=== PATIENT | female | born 1960 | race Caucasian/White ===

== ENCOUNTER 2019-10-01 19:28 | Emergency (ER) | payer MEDICAID, SELFPAY ==
[2019-10-01 19:30] VITALS: BP 135/65; PULSE 60; RESP 19; TEMP 36.8; O2SAT 95; BMI 26.2
--- NOTE | 2019-10-01 19:54 | EKG12_ITS ---
Test Reason : CP Blood Pressure : / mmHG Vent. Rate : 074 BPM Atrial Rate : 074 BPM P-R Int : 154 ms QRS Dur : 082 ms QT Int : 396 ms P-R-T Axes : 067 049 038 degrees QTc Int : 439 ms Normal sinus rhythm Normal ECG Confirmed by TAD TRAMMELL, REMBERTO ([id number]), city editor ROSENDA DRAPER ([id number]) on 10/03/2019 9:16:52 AM Referred By: Confirmed By:REMBERTO MISHRA MD
--- NOTE | 2019-10-01 19:55 | ED.VIS.CHEST ---
History of Present Illness Chief Complaint: Chest Pain Informant: Patient Onset: Days - 2 Activity at onset: Unknown Timing: Continuous Quality: Heaviness Location: Substernal Current Severity: Moderate Maximum Severity: Moderate Worsened By: Breathing Relieved By: Remaining Still Associated Symptoms: Nausea - once earlier this evening, Dyspnea - chronic, a little worse than usual, Lightheadedness - a little earlier, Acid Reflux - can't qualify why she states I've had acid reflux with this lately. Negative for: Vomiting, Diaphoresis, Cough, Fever, Palpitations Narrative: Patient with a history of heart disease with angioplasty that was performed remotely, no stents placed. She takes aspirin daily, no longer on other antiplatelets or any anticoagulants. States she has been having heaviness in her chest for the last 2 days constant, has not tried any medications for that but has been compliant with her aspirin. She states tonight she was eating a inman lettuce tomato sandwich, and when she swallowed a bite, she felt a sharp pain beneath her right breast as she was swallowing it, that was severe and brief. She states after that she had some numbness in both of her hands discomfort around her right shoulder blade that is improved. This made her very concerned so she presents for evaluation making sure that this is not my heart. Recent Illness/Hospitalization: No - Past Medical History (1) CAD (coronary artery disease) Status: Chronic (2) HTN (hypertension) Status: Chronic (3) COPD (chronic obstructive pulmonary disease) Status: Chronic Past Medical History - Allergies and Home Meds Allergies/Adverse Reactions: Allergies No Known Allergies Allergy (Verified 10/01/19 19:35) Primary Care Physician: Gregoria Quinn MD [Primary Care Provider] - Surgical History: angioplasty - Coronary Lives: Alone Smoking Status: Current every day smoker Review of Systems General: Denies: Chills, Fever, Sweats Eyes: Denies: Visual changes - bilaterally, Diplopia ENT: Denies: Rhinorrhea, Sore throat Cardiovascular: Reports: Chest pain. Denies: Palpitations Respiratory: Reports: Dyspnea. Denies: Cough, Dyspnea on exertion Gastrointestinal: Reports: Nausea - gone. Denies: Abdominal pain, Vomiting, Diarrhea, Melena, Hematochezia Genitourinary: Denies: Dysuria, Hematuria, Frequency Musculoskeletal: Reports: Back pain. Denies: Neck pain, Swelling, Extremity Pain Skin: Denies: Rash, Wounds Neurological: Reports: Parasthesia. Denies: Headache, Weakness Physical Exam Vital Signs/Narrative: Vital Signs Temp Pulse Resp BP Pulse Ox 10/01/19 19:30 98.2 F 60 19 H 135/65 H 95 Inital Vital Signs reviewed: Yes General: Well nourished, Well developed, No Acute Distress Head: Normocephalic, Atraumatic Eyes: Perrl, EOMI ENT: Moist mucous membranes, No rhinorrhea, - - Posterior oropharynx clear and normal Neck: Supple, Nontender, No lymphadenopathy, No JVD Cardiovascular: Regular rate, Regular rhythm, No murmurs, - - Equal bilateral 2+/4 radial pulses Respiratory: No distress, Chest nontender, Wheezing, - - no splinting on deep inspiration. Negative for: Rales, Rhonchi Abdomen: Soft, Nontender, Nondistended, Normal bowel sounds Back: Nontender, Normal Inspection Extremities: Nontender, No edema. Negative for: Calf Tenderness Skin: Normal color, No rash, No Trauma Neurological: Alert, Oriented x3, Cranial nerves II-XII grossly intact, Normal Strength, Normal Sensation Psychological: Normal affect, Normal Mood Diagnostic/Tx/Re-eval Impressions Chest X-Ray 10/01/19 20:16 IMPRESSION: Calcified plaques of the aortic arch. No acute cardiopulmonary disease process is seen. Electronically Signed: Christiano Buchanan MD at 20:29 EDT , Service support , 10/01/19 20:16 Chest 1 View (Portable) [RAD] Stat Laboratory Results 10/01/19 10/01/19 19:44 19:44 WBC 8.2 RBC 4.43 Hgb 13.5 Hct 41.0 MCV 92.6 MCH 30.5 MCHC 32.9 RDW Std Deviation 43.3 RDW Coeff of Iván 12.7 Plt Count 351 MPV 9.3 Immature Gran % (Auto) 0.100 Neut % (Auto) 56.4 Lymph % (Auto) 30.7 Hoke % (Auto) 10.1 H Eos % (Auto) 2.0 Baso % (Auto) 0.7 Absolute Neuts (auto) 4.6 Absolute Lymphs (auto) 2.52 Nucleated RBC % 0 Sodium 142 Potassium 3.8 Chloride 107 Carbon Dioxide 30.0 Anion Gap 5 BUN 10 Creatinine 0.98 Estim Creat Clear Calc 57.15 Est GFR (MDRD) Af Amer 75 Est GFR (MDRD) Non-Af 62 BUN/Creatinine Ratio 10.3 Glucose 139 H Calcium 9.7 Troponin I < 0.015 - Rhythm Strip Rhythm Strip: Sinus Rhythm Rate: 74 Ectopy: None - EKG Initial EKG Interpretation: Sinus Rhythm, No Acute Injury Pattern - Normal EKG - Medical Decision Making Patient was given an albuterol aerosol, she states it actually seemed to make things worse and no better. It did make her wheezing improved though. After GI cocktail, she noticed maybe a little improvement transiently but no resolution of her discomfort. She was still uncomfortable. She was then given a nitroglycerin, and again maybe noticed some mild transient improvement. Her work-up is negative and she has had discomfort constant for over 2 days, with a normal EKG and negative enzymes. I reassured her I do not think this is unstable angina and she has not had any evidence of an OR here. Her work-up is otherwise unremarkable as well, her chest x-ray shows a very narrow mediastinum suggesting there is no evidence of aortic dissection, I do not think her symptoms indicate that is the case, so my pretest probability was low there in the first place. She made the symptoms worse with swallowing part of a sandwich earlier tonight, it did not get stuck and she was able to continue to drink fluids. As I discussed with her, my suspicion is that this is esophageal in etiology. Reflux, ulcers, spasm are all in the differential, she agrees she thinks it is related. She is starting to feel little little in her back now. I offered admission, but she adamantly refuses and does not want to stay in the hospital. I offered a dose of morphine prior to being discharged, and she is thankful and wants that option. She is on nothing for reflux, will prescribe her a PPI and advised that she follow-up closely with her doctor. She is comfortable with that plan. We discussed reasons to return. Additionally, the patient states that she used to see Dr. Forrester with [facility], and needs a new bottom brusher. She states she has history of angioplasty without stents. She was also given local cardiology practice information. ED Disposition - Plan for ED Patient: Disposition: Home or Assisted Living Diagnosis: Chest pain, atypical Instructions: ED Chest Pain Atypical Unkn Cause Prescriptions: Pantoprazole Sodium [Protonix] 40 mg PO DAILY #30 tab Transmission Status: Pending to [facility] Referrals: Gregoria Quinn MD [Primary Care Provider] - 3-5 Days if not improving Maxwell Roldan MD [STAFF PHYSICIAN] - (call for cardiology appt)
[2019-10-01 20:05] VITALS: PULSE 71; RESP 20
[2019-10-01] MEDS: Albuterol 2.5 MG/3 ML VIAL.NEB. INHALATION (20:05)
[2019-10-01] MEDS: Mag Hydrox/Al Hydrox/Simeth 30 ML UDC PO (20:12)
--- NOTE | 2019-10-01 20:16 | RAD_ITS ---
STUDY: X-RAY CHEST REASON FOR EXAM: Female, 59 years old. cp x2 days. down rt arm TECHNIQUE: Single AP portable view of the chest. COMPARISON: Prior study of 04/04/2017 FINDINGS: frame polisher leads are present. The lungs are clear and expanded. There is no demonstrated pleural abnormality. Normal size heart. Normal mediastinum and mendy. Normal visualized pulmonary arteries. There calcified plaques of the aortic arch. Normal visualized thoracic spine. Normal visualized ribs, clavicles, and shoulders. There is no demonstrated abnormality of the visualized soft tissue structures of the upper abdomen. RAD/Chest 1 View (Portable) IMPRESSION: Calcified plaques of the aortic arch. No acute cardiopulmonary disease process is seen. Electronically Signed: Christiano Buchanan MD at 20:29 EDT , Service support ,
--- NOTE | 2019-10-01 20:22 | CPS ---
Pt. unable to complete entire treatment due to chest pain
[2019-10-01 20:27] LABS: Absolute Lymphocyte Count 2.52 X10^3/uL (0.83-4.51); Absolute Neutrophil Count 4.6 X10^3/uL (2.0-7.7); Basophil# 0.06 X10^3/uL; Basophil% 0.7 % (0-1); Eosinophil# 0.16 X10^3/uL; Hemoglobin 13.5 g/dL (12.0-15.0); Lymphocyte # 2.52 X10^3/ul (4.0); Lymphocyte % 30.7 % (19-41); Mean Corp Hgb Conc 32.9 g/dL (32-36); Mean Corpuscular Hgb 30.5 pg (27.0-32.0); Mean Corpuscular Volume 92.6 fL (81-99); Mean Platelet Vol. 9.3 fl (6.2-12.0); Monocyte# 0.83 X10^3/uL; Monocyte% 10.1 % (0-10); NRBC Flagged by Analyzer 0 % (0-5); Neutrophil # 4.62 X10^3/uL (2.7-7.7); Neutrophil % 56.4 % (47-70); Platelet Count 351 K/mm3 (150-450); RBC Distribution Width CV 12.7 % (11.6-14.6); RBC Distribution Width SD 43.3 fl (35.1-43.9); Red Blood Count 4.43 M/mm3 (4.2-5.4); White Blood Count 8.2 K/mm3 (4.4-11.0)
[2019-10-01 20:38] LABS: Anion Gap 5 (5-15); BUN 10 mg/dL (7-18); BUN/Creat Ratio 10.3 RATIO (10-20); Calcium,Total 9.7 mg/dL (8.5-10.1); Chloride 107 mmol/L (98-107); Creatinine, Serum 0.98 mg/dL (0.55-1.02); EST Glomerular Filtration Rate 62 mL/min (>60); Est Glom Filt Rate - Afr Amer 75 mL/min (>60); Estimated Creatinine Clearance 57.15 ml/min; Glucose 139 mg/dL (74-106); Potassium 3.8 mmol/L (3.5-5.1); Sodium Level 142 mmol/L (136-145)
[2019-10-01 21:12] VITALS: BP 121/63; PULSE 71
[2019-10-01] MEDS: Nitroglycerin SL (ED/IMG/CATH) 0.4 MG TABLET SUBLINGUAL (21:12)
[2019-10-01 21:13] VITALS: BP 121/63; PULSE 74; RESP 17; O2SAT 93
[2019-10-01] MEDS: Pantoprazole Sodium 40 MG Tablet PO (21:55)
[2019-10-01] MEDS: Morphine 4 MG/ML Syringe IV (21:55)
[2019-10-01 22:01] VITALS: BP 124/71; PULSE 71; RESP 17; O2SAT 99
--- NOTE | 2019-10-01 22:01 | ED.RN ---
pt does not want to wait to see if morphine helps. pt said daughter waiting needs to leave now
== END 2019-10-01 22:02 | disposition home or self-care (01) ==
PROVIDERS: Emergency Provider Emergency Medicine; PCP Internal Medicine
DX: R07.89 Other chest pain (principal); R20.0 Anesthesia of skin; R06.00 Dyspnea, unspecified; I10 Essential (primary) hypertension; I25.10 Atherosclerotic heart disease of native coronary artery without angina pectoris; J44.9 Chronic obstructive pulmonary disease, unspecified; F17.200 Nicotine dependence, unspecified, uncomplicated; Z79.82 Long term (current) use of aspirin
CPT/HCPCS: 71045; 80048; 84484; 85025; 93005; 94640; 96374; 99285; A4216

== ENCOUNTER → 2019-11-24 06:40 | Outpatient (CLI) | payer MEDICAID, SELFPAY ==
[2019-11-06 13:00] VITALS: BMI 26.3
--- NOTE | 2019-11-24 09:07 | NEURO ---
NCS and/or EMG Patient Report Ordering Doctor: Claudio Berger DATE OF SERVICE: 11/24/19 Jonathon Davey D.O. .sign .sign Jonathon Davey D.O. This 74-year-old female states that she had chest pain intermittently for the past few weeks. There have been more frequent episodes over the past few days. This chest pain is associated with diaphoresis and she has a history of COPD. There is not shortness of breath, but there patient states she loses her breath when she bends forward. This morning the patient developed pain across her chest with throat tightness while holding her grandchild. The patient's date of is 03/02/1954. The patient's date of is March 10, 2014. Patient has a fever of 99 ?F. Blood pressure is 160/98. This is a Medications reviewed with the patient. Risks, benefits, alternatives, side effects, potential complications and dangers of medications discussed. Patient wishes to utilize these agents despite risks. A signed medical consent/advisement form regarding narcotic medications and a signed medication agreement are located in the patient's chart. .Medications Medications reviewed with the patient. Risks, benefits, alternatives, side effects, potential complications and dangers of medications discussed. Patient wishes to utilize these agents despite risks. A signed medical consent/advisement form regarding narcotic medications and a signed medication agreement are located in the patient's chart. The right knee was cleaned in the usual manner. We used Jonathon Davey D.O. a medical approach. The knee was entered with 18-gauge needle. The knee was aspirated. An injection was performed using 40 mg of Depo-Medrol with lidocaine and Marcaine. There were no complications. Normal postop instructions were given. Jonathon Davey D.O.
--- NOTE | 2019-11-25 07:55 | PFT ---
INTRODUCTION: The patient is a 59-year-old female that presents for pulmonary function studies secondary to a diagnosis of shortness of breath. Respiratory therapy reports good patient effort. Bronchodilators were used during testing. INTERPRETATION: Forced expiration spirometry demonstrates the presence of a moderately severe large airways obstructive ventilatory defect. There was no significant response to aerosolized bronchodilators. Spirograms are of good quality and do not plateau indicating slow emptying of the lungs. Body plethysmography was performed and reveals lung volumes to be within normal limits. Diffusing capacity by single breath CO is mildly reduced to 65% of predicted. IMPRESSION: Irreversible moderately severe large airways obstructive ventilatory defect with preserved lung volumes and mild reduction in diffusing capacity.
== END ==
PROVIDERS: PCP Internal Medicine; Referring Provider Internal Medicine Cardiovascular Disease; Visit Provider Internal Medicine Cardiovascular Disease
DX: I25.10 Atherosclerotic heart disease of native coronary artery without angina pectoris (principal); E78.00 Pure hypercholesterolemia, unspecified; R07.2 Precordial pain; R06.00 Dyspnea, unspecified; Z98.61 Coronary angioplasty status
CPT/HCPCS: 94060; 94726; 94729

== ENCOUNTER → 2019-12-02 06:48 | Outpatient (CLI) | payer MEDICAID, SELFPAY ==
[2019-11-06 13:00] VITALS: BMI 26.3
--- NOTE | 2019-12-02 06:48 | ECHOD_ITS ---
Reason For Study: CHEST PAIN Procedure This was a 2D Doppler, Color Flow transthoracic echocardiogram. The study was technically difficult. Exam performed in department. Left Ventricle Normal LV size. Left ventricular systolic function is normal. The estimated ejection fraction is 65 %. No evidence for diastolic dysfunction. No regional wall motion abnormalities noted. Right Ventricle Normal RV size. Normal systolic function. Atria Normal left atrium. Normal right atrium. No doppler evidence for ASD. Mitral Valve There is no mitral annular calcification. Normal mitral valve. Mild (1+) mitral valve insufficiency. Tricuspid Valve Normal tricuspid valve. Mild tricuspid valve insufficiency. Right ventricular systolic pressure estimated to be 27 mmHg. Aortic Valve The aortic valve is not well visualized. Pulmonic Valve The pulmonic valve is not well visualized. Great Vessels Normal sized aortic root. Pericardium/Pleural No pericardial effusion. MMode/2D Measurements & Calculations LVIDd: 4.4 cm IVSd: 0.92 cm Ao root diam: 2.8 cm LVIDs: 3.1 cm LVPWd: 1.00 cm RVDd: 2.8 cm FS: 30.4 % LAV(MOD-bp): 42.4 ml LA A4 area: 15.7 cm2 LA dimension(2D): 4.0 cm LAV(MOD-bp) Indexed: 23.3 ml/m2 LAV(MOD-sp2): 41.6 ml LAV(MOD-sp4): 41.7 ml Time Measurements MV dec time: 0.23 sec Doppler Measurements & Calculations MV E max jaime: 93.1 cm/sec Lat Peak E' Jaime: 11.0 cm/sec Med Peak E' Jaime: 10.3 cm/sec MV A max jaime: 81.8 cm/sec E/E' lat: 8.5 E/E' med: 9.1 MV E/A: 1.1 Ao V2 max: 105.4 cm/sec LV V1 max: 88.8 cm/sec PA V2 max: 88.7 cm/sec Ao max P.4 mmHg LV V1 max P.2 mmHg TR max jaime: 242.5 cm/sec TR max P.5 mmHg Interpretation Summary The study was technically difficult. Left ventricular systolic function is normal. The estimated ejection fraction is 65 %. Mild (1+) mitral valve insufficiency. Mild tricuspid valve insufficiency. Right ventricular systolic pressure estimated to be 27 mmHg. No evidence for diastolic dysfunction. Ordering Physician: Maxwell Roldan Referring Physician: Gregoria Quinn Performed By: Estela Estes, ABHAY, RVT
--- NOTE | 2019-12-02 08:31 | STRESSREP ---
Stress Test Report Date: 12-02-2019 Procedure: Pharmacologic stress nuclear imaging study Indications: Shortness of breath/dyspnea on exertion; CAD Consent: Per the patient Procedure: The patient underwent pharmacologic (Regadenoson) evaluation with a peak heart rate of 106 beats per minute (66 %predicted maximal heart rate) and a peak blood pressure of 120/70 mmHg. The baseline ECG demonstrated sinus bradycardia. The peak pharmacologic ECG demonstrated no obvious ECG changes. There were no cardiac dysrhythmias pretest, during pharmacologic infusion, or recovery. There was no complaint of chest discomfort during pharmacologic infusion or recovery. The examination was discontinued secondary to completion of protocol. Impression: 1. Pharmacologic (Regadenoson) evaluation 2. Peak pharmacologic ECG with no obvious ECG changes. 3. There were no cardiac dysrhythmias pretest, during pharmacologic infusion, or recovery. 4. Nuclear images pending Myocardial perfusion imaging study: Technique: The patient was injected with 11.9 millicuries of technetium 99m Cardiolite and subsequently rest SPECT Cardiolite nuclear imaging was obtained in the horizontal long, vertical long, and short axis views. The patient underwent pharmacologic (Regadenoson) evaluation with a peak heart rate of 106 beats per minute (66 % percent predicted maximal heart rate) and a peak blood pressure of 120/70 mmHg. The patient was injected with 33.6 millicuries of technetium 99m Cardiolite and subsequently stress SPECT Cardiolite nuclear imaging was obtained in the horizontal long, vertical long, and short axis views. A gated Cardiolite study at peak stress was obtained. Interpretation: Rest and stress SPECT Cardiolite nuclear imaging status post realignment, normalization, and attenuation correction demonstrate relative uniform tracer uptake and myocardial perfusion appearing within normal limits. There is end systolic thickening and brightening. The gated Cardiolite study demonstrates myocardial thickening and inward wall motion. The reported LVEF is 80 %. Impression: 1. Rest and stress SPECT Cardiolite nuclear imaging demonstrate relative uniform tracer uptake and myocardial perfusion appearing within normal limits. 2. The gated Cardiolite study reports an LVEF of 80 %. This note was generated with Iterable software. It may contain incorrect words, spelling, and punctuation that were not noted in checking the note before signing.
== END ==
PROVIDERS: PCP Internal Medicine; Referring Provider Internal Medicine Cardiovascular Disease; Visit Provider Internal Medicine Cardiovascular Disease
DX: R07.9 Chest pain, unspecified (principal); I25.10 Atherosclerotic heart disease of native coronary artery without angina pectoris; E78.00 Pure hypercholesterolemia, unspecified; R07.2 Precordial pain; R06.00 Dyspnea, unspecified; Z98.61 Coronary angioplasty status
CPT/HCPCS: 78452; 93017; 93306; A9500; A4216; J2785

== ENCOUNTER 2020-10-17 11:25 | Emergency (ER) | payer MEDICAID, SELFPAY ==
[2020-08-27 13:01] VITALS: BMI 28.4
[2020-10-17 11:26] VITALS: BP 160/70; PULSE 84; RESP 18; TEMP 36.4; O2SAT 96; BMI 29.0
--- NOTE | 2020-10-17 11:36 | RAD_ITS ---
HISTORY: injury. TECHNIQUE: XR Foot Min 3 Views. Number of images including paperwork: 3. COMPARISON: None. FINDINGS: OSSEOUS STRUCTURES: No acute fracture. Degenerative cysts of the first interphalangeal joint noted. JOINT SPACES: Fusion hardware of the first metatarsal-phalangeal joint. Mild degenerative change. No dislocation. SOFT TISSUES: No radiopaque foreign body identified. RAD/Foot min 3 Views IMPRESSION: No acute fracture or dislocation identified in the right foot. Postoperative changes. at 1217 Reported and signed by: Taryn Butts MD Electronically Signed: Taryn Butts MD at 12:16 EDT Tel , Service support ,
--- NOTE | 2020-10-17 11:38 | ED.VIS.LOWEX ---
HPI History of Present Illness Chief Complaint: Lower Extremity Injury Informant: patient Narrative Narrative: 60-year-old female was working the yard today when a board with a nail through it fell striking her just above her shoe near the ankle joint. She states now she cannot move her foot. She states that she is shaking. [facility] Medical History Atherosclerotic heart disease of [place] coronary artery without angina pectoris CAD (coronary artery disease) COPD (chronic obstructive pulmonary disease) Hepatitis C Pure hypercholesterolemia Home Medications aspirin 81 mg PO DAILY@0800 04/04/17 [History Last Taken Unknown] atorvastatin 40 mg PO DAILY 04/04/17 [History Last Taken Unknown] isosorbide mononitrate 60 mg PO DAILY 04/04/17 [History Last Taken Unknown] montelukast 10 mg PO DAILY 04/04/17 [History Last Taken Unknown] albuterol sulfate 2 puff IN Q4H PRN PRN 10/01/19 [History Last Taken Unknown] pantoprazole 40 mg PO DAILY #30 tab 10/01/19 [Rx Last Taken Unknown] cephalexin 500 mg PO Q6 #20 capsule 10/17/20 [Rx Last Taken Unknown] Allergy/AdvReac Type Severity Reaction Status Date / Time No Known Allergies Allergy Verified 10/17/20 11:26 Family History Grandmother Diabetes Surgical History History of section History of foot surgery History of percutaneous transluminal coronary angioplasty S/P PTCA (percutaneous transluminal coronary angioplasty) Social History Smoking Status: Current every day smoker tobacco type: cigarettes alcohol intake: never substance use type: does not use caffeine: Yes Type: coffee Number of servings: 1 ROS ROS ED Constitutional Constitutional ED: Denies chills or weight loss Eyes Eyes: Denies change in vision or diplopia ENT ENT ED: Denies ear pain, rhinorrhea or sore throat Cardiovascular Cardiovascular: Denies chest pain, orthopnea, palpitations or racing heartbeat Respiratory/Chest Respiratory/Chest: Denies cough, dyspnea or orthopnea Gastrointestinal Gastrointestinal: Denies abdominal pain, diarrhea, nausea or vomiting Genitourinary Genitourinary ED: Denies dysuria, hematuria or urinary frequency Musculoskeletal Musculoskeletal: Reports other Details: See history of present illness ; Denies arthralgias or myalgias Integumentary Denies abscess or rash Neurologic Neurologic: Denies headache(s) or weakness Psychiatric Psychiatric: Denies anxiety, depression, suicidal ideation or suicidal thoughts Endocrine Endocrinology: Denies polydipsia, polyphagia or polyuria Allergic/Immunologic Allergic/Immunologic ED: Denies mouth swelling, tongue swelling or urticaria EXAM Physical Exam Const Vital Signs: 10/17/20 11:26 Temperature 97.5 F L Temperature Source Temporal Pulse Rate 84 Respiratory Rate 18 Blood Pressure 160/70 H Blood Pressure Mean 100 Pulse Ox 96 Oxygen Delivery Method Room Air Positive well nourished and well developed General Appearance ED: well developed HEENT Reports normocephalic, head/scalp atraumatic and moist mucous membranes Eyes PERRL and EOMs intact bilaterally Neck no lymphadenopathy, supple and no JVD Resp normal respiratory effort and clear to auscultation bilaterally Cardio regular rate, regular rhythm and no murmurs GI normal to inspection, nondistended, normoactive bowel sounds and non-tender Palpation: soft Back/Spine no CVA tenderness and normal ROM Extremity normal to inspection Extremity Narrative: Just inferior to the right ankle joint is a puncture wound. There is mild swelling. No obvious contamination seen. Patient is able to move the foot. Neurovascular intact. She states that she cannot move the foot though because of pain. General Extremety ED: Negative for edema General Extremity: Negative for edema Neuro oriented x3 and CN's II-XII intact bilaterally Sensorium / Orientation: alert Motor Exam: strength 5/5 throughout Psych mental status grossly normal Mood & Affect: Negative for depressed or tearful Skin no rashes or lesions noted Rashes: no rashes Trauma: puncture MDM MDM MDM Narrative Medical decision making narrative: Tetanus was updated with Adacel. The wound was cleansed and dressed. She also received a dose of Toradol my interpretation of the plain films of the right ankle is no acute process. No fracture seen. No significant soft tissue air or foreign bodies are noted. Patient will receive a prescription for Keflex. Local wound care. Radiography Diagnostic Testing: Radiology Impression Foot X-Ray 10/17/20 11:36 IMPRESSION: No acute fracture or dislocation identified in the right foot. Postoperative changes. at 1217 Reported and signed by: Taryn Butts MD Electronically Signed: Taryn Butts MD at 12:16 EDT Tel , Service support , Discharge Plan Triage Chief Complaint: Lower Extremity Injury ED Provider: Ab Medrano Dx/Rx/DC Orders Clinical Impression: Puncture wound of foot Instructions: ED Puncture Wound (Foot) Prescriptions: New cephalexin [cephalexin] 500 MG capsule 500 mg PO Q6 Qty: 20 RF: 0 No Action atorvastatin 40 MG tablet 40 mg PO DAILY RF: 0 isosorbide mononitrate 60 MG tablet extended release 24 hr 60 mg PO DAILY RF: 0 aspirin 81 MG tablet,chewable 81 mg PO DAILY@0800 RF: 0 montelukast 10 MG tablet 10 mg PO DAILY RF: 0 albuterol sulfate 90 mcg/actuation HFA aerosol inhaler 2 puff IN Q4H PRN PRN (Reason: Sob &/Or Wheezing) RF: 0 pantoprazole 40 MG tablet 40 mg PO DAILY Qty: 30 RF: 0 Primary Care Provider: Gregoria Quinn Referrals: Gregoria Quinn MD [Primary Care Provider] - 3-5 Days if not improving Disposition Disposition: Home, self care
[2020-10-17] MEDS: Diphth,Pertuss(Acell),Tet Vac 0.5 ML Vial IM (11:54)
[2020-10-17] MEDS: Ketorolac 30 MG/ML Syringe IM (11:54)
== END 2020-10-17 12:50 | disposition home or self-care (01) ==
PROVIDERS: Emergency Provider Emergency Medicine; PCP Internal Medicine
DX: S91.332A Puncture wound without foreign body, left foot, initial encounter (principal); W20.8XXA Other cause of strike by thrown, projected or falling object, initial encounter; Y93.9 Activity, unspecified; Y92.096 Garden or yard of other non-institutional residence as the place of occurrence of the external cause; Y99.9 Unspecified external cause status; E78.00 Pure hypercholesterolemia, unspecified; I25.10 Atherosclerotic heart disease of native coronary artery without angina pectoris; J44.9 Chronic obstructive pulmonary disease, unspecified; F17.210 Nicotine dependence, cigarettes, uncomplicated; Z79.82 Long term (current) use of aspirin; Z95.5 Presence of coronary angioplasty implant and graft
CPT/HCPCS: 73630; 90471; 90715; 96372; 99282; A4216

== ENCOUNTER → 2021-02-25 12:00 | Outpatient (CLI) | payer MEDICAID, SELFPAY ==
[2021-02-25 13:32] LABS: AST(SGOT) 19 U/L (15-37); Alanine Aminotransfer ALT/SGPT 11 U/L (13-56); Albumin, Serum 3.5 g/dL (3.2-5.0); Alkaline Phosphatase 129 U/L (45-117); Bilirubin, Direct 0.12 mg/dL (0.00-0.30); Cholesterol 168 mg/dL (200); Globulin 4.2 g/dL (2.2-4.2); High Density Lipoprotein 73 mg/dL; Protein, Total 7.7 g/dL (6.4-8.2); Triglycerides 116 mg/dL; Very Low Density Lipoprotein 23 mg/dL (5-40)
== END ==
PROVIDERS: PCP Internal Medicine; Referring Provider Nurse Practitioner Gerontology; Visit Provider Nurse Practitioner Gerontology
DX: E78.00 Pure hypercholesterolemia, unspecified (principal)
CPT/HCPCS: 36415; 80061; 80076

== ENCOUNTER → 2021-03-29 06:49 | Outpatient (CLI) | payer MEDICAID, SELFPAY ==
--- NOTE | 2021-03-29 08:52 | STRESSREP_ITS ---
Stress Test Report Date: 03-29-2021 Procedure: Exercise tolerance test/imaging study Indications: Chest pain, CAD, PTCA (no stent) Consent: Per the patient Procedure: The patient exercised on a Renny protocol for 3 minutes and 29 seconds completing Stage I and 29 seconds of Stage II achieving a peak heart rate of 134 bpm (84 % predicted maximal heart rate) with a peak blood pressure 162/84 mmHg and a peak MET capacity of 5 METs. The baseline ECG demonstrated sinus rhythm. The peak exercise ECG demonstrated somatic / motion artifact with no obvious ECG changes. There were rare PVCs during exercise. The functional capacity was considered decreased. There was no complaint of chest discomfort during exercise or recovery. The examination was discontinued secondary to dyspnea. Impression: 1. Technically inadequate (percent predicted maximal heart rate less than 85%) exercise tolerance test 2. Peak exercise ECG with somatic / motion artifact with no obvious ECG changes at the heart rate achieved. 3. There were rare PVCs during exercise. 4. Nuclear images pending Myocardial perfusion imaging study: Technique: The patient was injected with 10.8 mCi of technetium 99m Cardiolite and subsequently rest SPECT Cardiolite nuclear imaging was obtained in the horizontal long, vertical long, and short axis views. The patient exercised on a Renny protocol for 3 minutes and 29 seconds completing Stage I and 29 seconds of Stage II achieving a peak heart rate of 134 bpm (84 % predicted maximal heart rate) with a peak blood pressure 162/84 mmHg and a peak MET capacity of 5 METs. The patient was injected with 32.7 mCi of technetium 99m Cardiolite and subsequently stress SPECT Cardiolite nuclear imaging was obtained in the horizontal long, vertical long, and short axis views. A gated Cardiolite study at peak stress was obtained. Interpretation: Rest and stress SPECT Cardiolite nuclear imaging status post realignment, normalization, and attenuation correction, demonstrates the appearance of relative uniform tracer uptake and myocardial perfusion appearing within normal limits. There is end systolic thickening and brightening. The gated Cardiolite study demonstrates myocardial thickening and inward wall motion. The reported LVEF is 82 %. Impression: 1. Rest and stress SPECT Cardiolite nuclear imaging demonstrate relative uniform tracer uptake and myocardial perfusion appearing within normal limits. 2. The gated Cardiolite study reports an LVEF of 82 %. This note was generated with [employer] software. It may contain incorrect words, spelling, and punctuation that were not noted in checking the note before signing.
== END ==
PROVIDERS: PCP Internal Medicine; Referring Provider Nurse Practitioner Gerontology; Visit Provider Nurse Practitioner Gerontology
DX: R07.89 Other chest pain (principal); I25.10 Atherosclerotic heart disease of native coronary artery without angina pectoris
CPT/HCPCS: 78452; 93017; A9500; A4216

== ENCOUNTER → 2022-06-09 | Outpatient (CLI) | payer MEDICAID, SELFPAY ==
--- NOTE | 2022-06-09 16:37 | CT_ITS ---
STUDY: LOW DOSE CT LUNG CANCER SCREENING REASON FOR EXAM: Female, 62 years old. Smoker. 40 pack year history. RADIATION DOSAGE (If Supplied By Facility): CTDIvol = ( 3.02 ) mGy, DLP = ( 115.88 ) mGycm TECHNIQUE: No contrast was administered. Low dose technique was utilized (average mAS-38 and kVp 120). 1.25 mm axial source images with a slice interval of 1.25-mm were reconstructed in lung windows. 2.5 mm axial source images with a slice interval of 2.5-mm were reconstructed in lung windows. 5.0 mm axial source images with a slice interval of 5.0-mm were reconstructed in soft tissue windows. COMPARISON: May 04, 2021. NODULES: Total lung nodules (excluding granulomas): 0 Emphysema: Stable emphysematous changes of lungs without acute infiltrate or mass. Endobronchial lesion: None Aorta: Stable atherosclerotic changes of the aorta without aneurysm. CORONARY ARTERIES: Coronary artery calcification are seen Heart: Normal Pulmonary artery: Normal Mediastinal nodes: Stable nonspecific subcentimeter mediastinal lymph nodes. Other chest and abdominal findings: On CT/Low Dose CT Lung Screening IMPRESSION: Lung-RADS category 1 - Continue annual screening with LDCT in 12 months. IMPORTANT NOTES FOR USE: ACR Lung-RADS Version 1.1 Assessment Categories Release Date: 2018 Category: Coded 0-4 bases on nodule(s) with highest degree of suspicion. Negative screen is defined as categories 1 and 2; a positive screen is defined as categories 3 and 4. Category 3 and 4A nodules that are unchanged on interval CT should be coded as category 2, and individuals returned to screening in 12 months. Category 4X: Category 3 or 4 nodules with additional imaging findings that increase the suspicion of lung cancer, such as spiculation, GGN that doubles in size in 1 year, enlarged lymph notes, etc. Category Modifiers: S (significant finding unrelated to lung cancer) Electronically Signed: Jake Patterson DO at 21:46 EST Reading Location ID and State: [address] [place] [address] Tel [phone], Service support ,
== END | disposition home or self-care (01) ==
LOC: CT 16:33
PROVIDERS: PCP Internal Medicine; Visit Provider Nurse Practitioner Acute Care
DX: F17.210 Nicotine dependence, cigarettes, uncomplicated (principal)
CPT/HCPCS: 71271

== ENCOUNTER → 2022-06-23 | Outpatient (CLI) | payer MEDICAID, SELFPAY ==
--- NOTE | 2022-06-24 06:47 | PFT ---
INTRODUCTION: The patient is a 62-year-old female that presents for pulmonary function studies secondary to a diagnosis of COPD. Respiratory therapy reported good patient effort. Bronchodilators were used during testing. INTERPRETATION: Forced expiration spirometry demonstrates the presence of a moderate large airways obstructive ventilatory defect. There was no significant response to aerosolized bronchodilators. Spirograms are of good quality but do not plateau indicating slow emptying of the lungs. Body plethysmography was performed and reveals lung volumes to be within normal limits. Diffusing capacity by single breath CO is reduced at 65% of predicted. IMPRESSION: Irreversible moderate large airways obstructive ventilatory defect with mild reduction in diffusing capacity.
== END | disposition home or self-care (01) ==
LOC: PSN 09:17
PROVIDERS: PCP Internal Medicine; Visit Provider Internal Medicine Critical Care Medicine
DX: J44.9 Chronic obstructive pulmonary disease, unspecified (principal)
CPT/HCPCS: 94060; 94726; 94729

== ENCOUNTER → 2022-07-04 | Outpatient (CLI) | payer MEDICAID, SELFPAY ==
[2022-07-04 13:41] VITALS: PULSE 73; PULSE 78; PULSE 90; PULSE 92; PULSE 97; PULSE 99; O2SAT 92; O2SAT 93; O2SAT 94
--- NOTE | 2022-07-05 10:27 | PCM.PSN.6M ---
PSN 6 Minute Walk Test 6 Minute Walk Test 6 Minute Walk Test: 6 Minute Walk Test PSN:6-Minute Walk Test Start: 07/04/22 13:41 Freq: Status: Active Protocol: [id number].6MINW Document 07/04/22 13:41 [facility] (Rec: 07/04/22 13:43 SFENTON Desktop) 6 Minute Walk Test Date Performed 07/04/22 Time Performed 13:00 Height 5 ft 7 in Weight: 188 lb Weight in Pounds 188.[address]: Luis Lui Assistive device used: None Pre-test Oxygen Delivery Method Room Air Pulse Ox (%) 94 Pulse Rate (60-100 beats/min) 73 Dyspnea Clinton Scale (0-10) 0 Exertion Clinton Scale (6-20) 6 1st minute Oxygen Delivery Method Room Air Pulse Ox (%) 92 Pulse Rate (60-100 beats/min) 92 2nd minute Oxygen Delivery Method Room Air Pulse Ox (%) 92 Pulse Rate (60-100 beats/min) 90 3rd minute Oxygen Delivery Method Room Air Pulse Ox (%) 93 Pulse Rate (60-100 beats/min) 92 4th minute Oxygen Delivery Method Room Air Pulse Ox (%) 92 Pulse Rate (60-100 beats/min) 99 5th minute Oxygen Delivery Method Room Air Pulse Ox (%) 92 Pulse Rate (60-100 beats/min) 97 6th minute Oxygen Delivery Method Room Air Pulse Ox (%) 92 Pulse Rate (60-100 beats/min) 99 Dyspnea Clinton Scale (0-10) 3 Exertion Clinton Scale (6-20) 14 Post-test Oxygen Delivery Method Room Air Pulse Ox (%) 94 Pulse Rate (60-100 beats/min) 78 Full Laps Walked 15 Partial Lap, Number of Tiles Walked 4 Total Distance Walked (ft) 889 Interpretation Interpretation: The patient ambulated 889 feet over the course of 6 minutes beginning on room air without assistive devices. Pretesting oxygen saturation was noted to be 94% on room air. With ambulation, the garrick oxygen saturation was 92%. There was no significant exertional oxygen desaturation. Recommendations Recommendations: There is no indication for the use of supplemental oxygen at this time.
== END | disposition home or self-care (01) ==
PROVIDERS: PCP Internal Medicine; Referring Provider Internal Medicine Critical Care Medicine; Visit Provider Internal Medicine Critical Care Medicine
DX: J44.9 Chronic obstructive pulmonary disease, unspecified (principal)
CPT/HCPCS: 94618

== ENCOUNTER 2023-04-23 09:08 | Emergency (ER) | payer MEDICAID, SELFPAY ==
[2023-04-23 09:09] VITALS: BP 141/98; PULSE 71; RESP 18; TEMP 36.4; O2SAT 95; BMI 28.5
--- NOTE | 2023-04-23 09:33 | EX.ED.GENINJ ---
HPI History of Present Illness Chief Complaint: Laceration Informant: patient Narrative Narrative: 63-year-old female was using a brand-new hunting knife to cut some tags off of clothing, and she accidentally cut into her left index finger I think it is down to the bone. It is occurred last night, she been having trouble controlling the bleeding. She is on aspirin daily but no anticoagulant medications. [id number]. [facility] Medical History (Updated 04/23/23 @ 10:[address] Tahir Singleton MD) Atherosclerotic heart disease of [place] coronary artery without angina pectoris CAD (coronary artery disease) COPD (chronic obstructive pulmonary disease) Emphysema lung Hepatitis C Pure hypercholesterolemia Home Medications aspirin 81 mg chewable tablet 81 mg PO DAILY@0800 04/04/17 [History Last Taken Unknown] atorvastatin 40 mg tablet 40 mg PO DAILY 04/04/17 [History Last Taken Unknown] pantoprazole 40 mg tablet,delayed release 40 mg PO DAILY PRN 02/25/21 [History Last Taken Unknown] isosorbide mononitrate 60 mg tablet,extended release 24 hr 60 mg PO DAILY 03/10/22 [History Last Taken Unknown] montelukast 10 mg tablet 10 mg PO DAILY #90 tabs 06/01/22 [Rx Last Taken Unknown] albuterol sulfate 90 mcg/actuation aerosol inhaler 2 puff inhalation Q4H PRN PRN Sob &/Or Wheezing #8.5 grams 06/14/22 [Rx Last Taken Unknown] umeclidinium 62.5 mcg/actuation blister powder for inhalation (Incruse Ellipta) 1 inh inhalation DAILY #30 ea 06/14/22 [Rx Last Taken Unknown] fluticasone propionate 50 mcg/actuation nasal spray,suspension 2 spray intranasal DAILY #16 grams 10/03/22 [Rx Last Taken Unknown] Allergy/AdvReac Type Severity Reaction Status Date / Time No Known Allergies Allergy Verified 04/23/23 09:09 Family History Grandmother Diabetes Surgical History History of section History of foot surgery History of percutaneous transluminal coronary angioplasty S/P PTCA (percutaneous transluminal coronary angioplasty) Social History (Reviewed 06/06/23 @ 08:53 by Jessie Mathews 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, 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) Smoking Status: Current every day smoker tobacco type: cigarettes alcohol intake: never substance use type: does not use caffeine: Yes Type: coffee Number of servings: 1 ROS ROS ED Constitutional Constitutional ED: Denies chills or fever(s) Musculoskeletal Musculoskeletal: Reports extremity pain; Denies neck pain Integumentary Reports wounds; Denies Abrasions or rash Neurologic Neurologic: Denies paresthesias or weakness EXAM Physical Exam Const Vital Signs: 04/23/23 09:09 Temperature 97.5 F L Temperature Source Temporal Pulse Rate 71 Respiratory Rate 18 Blood Pressure 141/98 H Blood Pressure Mean 112 Pulse Ox 95 Oxygen Delivery Method Room Air Positive well nourished and well developed General Appearance ED: well developed and NAD Neck full ROM and supple Back/Spine normal ROM and normal to inspection Extremity Extremity Narrative: Laceration to the left index finger. Able to range all joints no bony tenderness or deformity. No other injuries. FDS, FDP intact. Able to extend with no difficulty. Laceration is volar aspect middle phalanx closer to the PIPJ. Able to range the joint fully. No bony tenderness dorsally. Neuro oriented x3, no focal motor deficits and no sensory deficits noted Sensorium / Orientation: alert Psych mental status grossly normal and thought process normal Skin Skin Narrative: Laceration left index finger 1.5 cm, J-shaped. It is full-thickness, there is brisk venous oozing that is temporarily stopped when I apply pressure distal to the laceration consistent with venous bleeding. There is subcutaneous tissue visible but no tendons or bone. Clean-appearing. Rashes: no rashes PROC Procedures Lacerations L index finger: Length: 1.5 cm Depth: Sub Q Shape: J-shaped Prep: Sterile Conditions and Chlorhexadine Laceration repair: Irrigated, Lidocaine with epi (1%) and Local (2cc) Irrigated (ml): 100 (under pressure) Number of Sutures/Kinder: 5 Suture Information: Ethilon, Simple and 5-0 Comment: Good skin edge apposition even with ranging at the PIPJ, and hemostasis MDM MDM MDM Narrative Medical decision making narrative: Laceration was repaired after locally anesthetizing patient tolerated well no complications. Do not think she needs a tetanus update from this it was a clean brand-new knife. Given instructions for care and suture removal, and signs and symptoms of infection and reasons to return. She was asking for a splint because it was hurting so bad to move it, she was advised to just use this for couple days and not the entire 2 weeks. Discharge Plan Triage Chief Complaint: Laceration ED Provider: Tahir Singleton Dx/Rx/DC Orders Clinical Impression: Laceration of left index finger w/o foreign body w/o damage to nail Instructions: ED Laceration, Hand: All Closures Prescriptions: No Action pantoprazole 40 mg tablet,delayed release (DR/EC) 40 mg PO DAILY PRN isosorbide mononitrate 60 mg tablet extended release 24 hr 60 mg PO DAILY Incruse Ellipta 62.5 mcg/actuation blister with device 1 inh inhalation DAILY Qty: 30 6RF albuterol sulfate 90 mcg/actuation HFA aerosol inhaler 2 puff inhalation Q4H PRN PRN (Reason: Sob &/Or Wheezing) Qty: 8.5 3RF fluticasone propionate 50 mcg/actuation spray,suspension 2 spray intranasal DAILY Qty: 16 3RF atorvastatin 40 MG tablet 40 mg PO DAILY aspirin 81 MG tablet,chewable 81 mg PO DAILY@0800 montelukast 10 mg tablet 10 mg PO DAILY Qty: 90 3RF Primary Care Provider: Gregoria Quinn Referrals: Gregoria Quinn MD [Primary Care Provider] - 10-14 Days suture removal (or ER/urgent care, or another physician in same office as Dr. Quinn if she is no longer available) Disposition Disposition: Home, Self Care
[2023-04-23] MEDS: Lidocaine 1% /Epi 1:100 (20ml) 20 ML Vial INFILT (09:51)
== END 2023-04-23 10:56 | disposition home or self-care (01) ==
PROVIDERS: Emergency Provider Emergency Medicine; PCP Internal Medicine; Visit Provider Emergency Medicine
DX: S61.211A Laceration without foreign body of left index finger without damage to nail, initial encounter (principal); J44.9 Chronic obstructive pulmonary disease, unspecified; I25.10 Atherosclerotic heart disease of native coronary artery without angina pectoris; E78.00 Pure hypercholesterolemia, unspecified; Z23 Encounter for immunization; F17.210 Nicotine dependence, cigarettes, uncomplicated; W26.0XXA Contact with knife, initial encounter
CPT/HCPCS: 12001; 99283

== ENCOUNTER → 2023-06-22 | Outpatient (CLI) | payer MEDICAID, SELFPAY ==
--- NOTE | 2023-06-22 14:34 | CT_ITS ---
STUDY: LOW DOSE CT LUNG CANCER SCREENING REASON FOR EXAM: Female, 63 years old. Smoker. Patient smoked 2 packs per day for 45 years. RADIATION DOSAGE (If Supplied By Facility): CTDIvol = ( 2.39 ) mGy, DLP = ( 101.18 ) mGycm TECHNIQUE: No contrast was administered. Low dose technique was utilized (average mAS-38 and kVp 120). 1.25 mm axial source images with a slice interval of 1.25-mm were reconstructed in lung windows. 2.5 mm axial source images with a slice interval of 2.5-mm were reconstructed in lung windows. 5.0 mm axial source images with a slice interval of 5.0-mm were reconstructed in soft tissue windows. COMPARISON: Comparison is made with prior study dated June 09, 2022. NODULES: No suspicious nodules are seen. Stable scarring in the anterior aspect of the left lower lobe abutting the left major fissure as well as the right upper lobe. Emphysema: Hyperinflation. Emphysematous changes with centrilobular emphysema more prominent in the upper lobes. Endobronchial lesion: None Aorta: Atherosclerotic plaque formation. CORONARY ARTERIES: Coronary artery calcification is seen. Heart: Unremarkable Pulmonary artery: Unremarkable Mediastinal nodes: No significant adenopathy seen. Other chest and abdominal findings: Unremarkable CT/Low Dose CT Lung Screening IMPRESSION: Lung-RADS category 2 - Continue annual screening with LDCT in 12 months. IMPORTANT NOTES FOR USE: ACR Lung-RADS Version 1.1 Assessment Categories Release Date: 2018 Category: Coded 0-4 bases on nodule(s) with highest degree of suspicion. Negative screen is defined as categories 1 and 2; a positive screen is defined as categories 3 and 4. Category 3 and 4A nodules that are unchanged on interval CT should be coded as category 2, and individuals returned to screening in 12 months. Category 4X: Category 3 or 4 nodules with additional imaging findings that increase the suspicion of lung cancer, such as spiculation, GGN that doubles in size in 1 year, enlarged lymph notes, etc. Category Modifiers: S (significant finding unrelated to lung cancer) Electronically Signed: Malachi Vaughan MD at 15:21 EST ,
--- OUTSIDE RECORDS SUMMARY | 2023-06-22 17:48 | XMS RPT_ITS | CCD ---
Demographics Address [address] [place] [address] Home Phone Mobile Phone Home Phone Mobile Phone Preferred Language en Marital Status Single Sabianist Affiliation Unknown Race White Ethnic Group Not or Lati no Author Name Unknown Address [address] [place] [address] Organization [facility] Care Team Providers Care 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 Name Role Phone RENATO PEMBERTON Unavailable Unavailable PHYSICIAN, NONE Unavailable Unavailable [place] TRAMMELL, Gregoria Primary Care Provider Maxwell Roldan F Unavailable Gregoria Bagley MD Primary Care Provider Mawxell Roldan F Unavailable Maxwell Roldan F Unavailable Gregoria Bagley MD Primary Care Provider Maxwell Roldan F Unavailable Maxwell Roldan F Unavailable Maxwell Roldan MD Unavailable GANTA, GREGORIA Primary Care Unavailable GANTA, GREGORIA Attending Unavailable GANTA, GREGORIA Referring Unavailable GANTA, GREGORIA Primary Care Unavailable GANTA, GREGORIA Attending Unavailable GANTA, GREGORIA Referring Unavailable GANTA, GREGORIA Referring Unavailable GANTA, GREGORIA Primary Care Unavailable GANTA, GREGORIA Primary Care Unavailable GANTA, GREGORIA Primary Care Unavailable RABIA LUKE Attending Unavailable GANTA, GREGORIA Referring Unavailable GANTA, GREGORIA Primary Care Unavailable GANTA, GREGORIA Referring Unavailable Allergies Allergy Classification Reported Allergen(s) Allergy Type Date of Onset Reaction(s) Facility (14 sources) Dust; Translations: [DUST] Allergy to substance 03-27-2017 Unknown [facility] Work Phone: (14 sources) Feather; Translations: [FEATHERS] Drug Allergy 03-27-2017 Unknown [facility] Work Phone: (14 sources) Grass pollen; Translations: [GRASS POLLEN] Drug Allergy 03-27-2017 Unknown [facility] Work Phone: (14 sources) Cotton; Translations: [COTTON] Allergy to substance 03-27-2017 Unknown [facility] Work Phone: Medications Completed/Discontinued Medications Medication Drug Class(es) Dates Sig (Normalized) Sig (Original) [id number] actuat albuterol 0.09 mg/actuat metered dose inhaler (12 sources) beta2-Adrenergic Agonist Start: 01-29-2023 End: 06-13-2023 take 2 puff(s) by inhalation every four hours as needed albuterol HFA (PROVENTIL HFA, VENTOLIN HFA) 90 mcg/actuation inhaler Inhale 2 Puffs as instructed every 4 hours as needed. 18 g 3 06/14/2023 Active Problems Active Problems Problem Classification Problem Date Documented Da te Episodic/Chronic Allergic reactions (2 sources) Other allergy status, other than to drugs and biological substances; Translations: [Environmental allergy] Onset: 06-09-2022 06-13-2023 Episodic Chronic obstructive pulmonary disease and bronchiectasis (20 sources) Pulmonary emphysema; Translations: [Other emphysema] Onset: 05-25-2020 Chronic Coronary atherosclerosis and other heart disease (13 sources) Coronary arteriosclerosis; Translations: [Atherosclerotic heart disease of [place] coronary artery without angina pectoris] Onset: 04-16-2013 04-25-2021 Chronic Disorders of lipid metabolism (18 sources) Hyperlipidemia; Translations: [Hyperlipidemia, unspecified] Onset: 04-16-2013 Chronic Hepatitis (14 sources) Chronic hepatitis C; Translations: [Chronic viral hepatitis C] Onset: 05-18-2020 Chronic Osteoarthritis (3 sources) Osteoarthritis of right hip joint; Translations: [Unilateral primary osteoarthritis, right hip] Onset: 06-09-2022 Chronic Other aftercare (2 sources) Patient encounter status; Translations: [Other on site manager (current) drug therapy] Episodic Other nervous system disorders (2 sources) Other chronic pain; Translations: [Chronic pain of right hip] Onset: 06-09-2022 Chronic Other non-traumatic joint disorders (1 source) Pain in right hip joint; Translations: [Pain in right hip] Episodic Other non-traumatic joint disorders (1 source) Shoulder pain; Translations: [Pain in left shoulder] Episodic Residual codes; unclassified (1 source) Left before being seen; Translations: [Procedure and treatment not carried out due to patient leaving prior to being seen by health care provider] Episodic Substance-related disorders (15 sources) Tobacco dependence, continuous; Translations: [Nicotine dependence, unspecified, with unspecified nicotine-induced disorders] Onset: 04-16-2013 Chronic Past or Other Problems Problem Classification Problem Date Documented Da te Episodic/Chronic Abdominal pain (1 source) Epigastric pain; Translations: [Epigastric pain] Onset: 06-09-2022 Episodic Diabetes mellitus without complication (4 sources) Prediabetes; Translations: [Prediabetes] Onset: 06-09-2022 Episodic Nonspecific chest pain (13 sources) Chest pain; Translations: [Chest pain, unspecified] Onset: 04-16-2013 04-16-2013 Episodic Other aftercare (1 source) Other on site manager (current) drug therapy; Translations: [Medication management] Onset: 05-29-2022 Episodic Other connective tissue disease (1 source) Impingement syndrome of left shoulder; Translations: [Impingement syndrome of left shoulder] Onset: 06-09-2022 Episodic Other connective tissue disease (1 source) Impingement syndrome of right shoulder; Translations: [Impingement syndrome of right shoulder] Onset: 06-09-2022 Episodic Other non-traumatic joint disorders (2 sources) Pain in right hip; Translations: [Right hip pain] Onset: 06-09-2022 Episodic Other non-traumatic joint disorders (2 sources) Pain in left shoulder; Translations: [Left shoulder pain, unspecified chronicity] Onset: 06-09-2022 Episodic Other non-traumatic joint disorders (1 source) Pain in right shoulder; Translations: [Chronic pain of both shoulders] Onset: 06-09-2022 Episodic Results Test Name Value Interpretation Reference Range Facil ity Vital Signs Date Time Vital Sign Value Performing Clinician Yessy johansen 08-21-2022 10:10-0400 Body height 170.2 cm Rabia Luke PA-C Work Phone: [facility] 08-21-2022 10:10-0400 Body weight 84.37 kg Rabia Luke PA-C Work Phone: [facility] 06-01-2022 10:13-0500 Body temperature 98.1 [degF] Gregoria Bagley MD Work Phone: [facility] 06-01-2022 10:13-0500 Body weight 83.73 kg Gregoria Bagley MD Work Phone: [facility] 06-01-2022 10:13-0500 Diastolic blood pressure 78 mm[Hg] Gregoria Bagley MD Work Phone: [facility] 06-01-2022 10:13-0500 Heart rate 76 /min Gregoria Bagley MD Work Phone: [facility] 06-01-2022 10:13-0500 Respiratory rate 22 /min Gregoria Bagley MD Work Phone: [facility] 06-01-2022 10:13-0500 SaO2% (BldA) [Mass fraction] 96 % Gregoria Bagley MD Work Phone: [facility] 06-01-2022 10:13-0500 Systolic blood pressure 134 mm[Hg] Gregoria Bagley MD Work Phone: [facility] 11-28-2021 11:39-0400 Body height 165.1 cm Gregoria Bagley MD Work Phone: [facility] 11-28-2021 11:39-0400 Body temperature 98.01 [degF] Gregoria Bagley MD Work Phone: [facility] 11-28-2021 11:39-0400 Body weight 79.83 kg Gregoria Bagley MD Work Phone: [facility] 11-28-2021 11:39-0400 Diastolic blood pressure 62 mm[Hg] Gregoria Bagley MD Work Phone: [facility] 11-28-2021 11:39-0400 Heart rate 72 /min Gregoria Bagley MD Work Phone: [facility] 11-28-2021 11:39-0400 Respiratory rate 12 /min Gregoria Bagley MD Work Phone: [facility] 11-28-2021 11:39-0400 SaO2% (BldA) [Mass fraction] 96 % Gregoria Bagley MD Work Phone: [facility] 11-28-2021 11:39-0400 Systolic blood pressure 112 mm[Hg] Gregoria Bagley MD Work Phone: [facility] Encounters Encounter Date Encounter Type Care Provider Facility Start: 06-13-2023 Refill Gregoria Fermin Work Phone: [facility] Procedures Date Procedure Procedure Detail Performing Clinician Start: 05-29-2022 Lipid 1996 panel - S jewel or Plasma Mari Abdul APRN.CNP Work Phone: Start: 11-28-2021 Hemoglobin A1c/Hemoglobin.total in Blood Gregoria Bagley MD Work Phone: Start: 11-28-2021 Adult depression scr eening assessment Gregoria Bagley MD Work Phone: Start: 02-06-2019 Mammography Gregoria begum MD Work Phone: Start: 02-28-2018 Colonoscopy Gregoria begum MD Work Phone: Plan of Treatment Date Care Activity Detail Author Start: 10-17-2030 Urine microalbumin profile DTa P,Tdap,Td Vaccine (3 - Td or Tdap) [facility] Start: 05-29-2027 Lipid 1996 panel - S jewel or Plasma Lipid Screening [facility] Start: 05-29-2027 Lipid panel Lipid Screening [facility] Start: 05-29-2027 LIPID SCREEN LIPID SCREEN [facility] Start: 06-15-2026 LIPID SCREEN LIPID SCREEN [facility] Start: 06-09-2025 DIABETES SCREEN DIABETES SCREEN [facility] Start: 06-09-2025 Diabetes Screening Diabetes Screenin g [facility] Start: 11-28-2024 DIABETES SCREEN DIABETES SCREEN [facility] Start: 06-28-2024 COLOGUARD (FIT-DNA) COLOGUARD (FIT-D NA) [facility] Start: 06-28-2024 COLORECTAL CANCER SCREENING COLORECTAL CANCER SCREENING [facility] Start: 06-28-2024 Screening for malign ant neoplasm of colon [facility] Start: 06-09-2023 ANNUAL PCP TEAM DESCRIPTIVE CATALOG LIBRARIAN NOAH DISEASE VISIT ANNUAL PCP TEAM CHRONIC DISEASE VISIT [facility] Start: 05-29-2023 Hepatitis B surface antibody level LDL CHOLESTEROL [facility] Start: 04-30-2023 Depression Assessment Depression Ass essment [facility] Start: 12-29-2022 Influenza vaccination [facility] Start: 11-28-2022 Adult depression scr eening assessment DEPRESSION SCREENING [facility] Start: 11-28-2022 ANNUAL PCP TEAM DESCRIPTIVE CATALOG LIBRARIAN NOAH DISEASE VISIT ANNUAL PCP TEAM CHRONIC DISEASE VISIT [facility] Start: 10-27-2022 Influenza vaccination INFLUENZA (#1) [facility] Immunizations Immunization Date Immunization Notes Care Provider Ck crystal 01-31-2021 hepatitis B vaccine, adult dosage Gregoria Bagley MD Work Phone: [facility] Work Phone: 10-17-2020 tetanus toxoid, redu papo diphtheria toxoid, and acellular pertussis vaccine, adsorbed Gregoria Bagley MD Work Phone: [facility] 09-16-2020 hepatitis B vaccine, adult dosage Gregoria Bagley MD Work Phone: [facility] Work Phone: 07-29-2020 hepatitis B vaccine, adult dosage Gregoria Bagley MD Work Phone: [facility] Work Phone: 02-28-2018 influenza virus vacc ine, unspecified formulation Mari Abdul APRN.CNP Work Phone: [facility] 02-09-2016 pneumococcal polysaccharide vaccine, 23 valent Gregoria Bagley MD Work Phone: [facility] Work Phone: 08-15-2013 tetanus toxoid, redu papo diphtheria toxoid, and acellular pertussis vaccine, adsorbed Gregoria Bagley MD Work Phone: [facility] 04-16-2013 influenza virus vacc ine, unspecified formulation Gregoria Bagley MD Work Phone: [facility] Payers Date Payer Category Payer Medicaid [id number] 2018 Medicaid [employer] [id number] 2018-Present [phone] [address] [place] [address] Medicaid [id number] 2018 Medicaid [id number] 2017 Medicaid [id number] Social History Date Type Detail Facility Start: 09-01-1984 End: 06-01-2022 Tobacco smoking status NHIS Smokes tobacco daily [facility] Work Phone: Start: 09-01-1984 History of tobacco use Cigarette Smo ker [facility] Work Phone: Start: 11-28-2021 End: 05-03-2023 Alcohol intake Current non-drinker of alcohol (finding) [facility] Start: 05-25-2020 End: 06-01-2022 Tobacco Comment Father smoked in childhood home. Currently, no smoking in her home. [facility] Start: 1960 Sex Assigned At Not on file [facility] Start: 11-18-2021 End: 11-28-2021 Exposure to SARS-CoV-2 (event) Not sure [facility] Work Phone: Start: 05-25-2020 End: 05-12-2022 Cigarettes smoked current (pack per day) - Reported 0.5 [facility] Start: 05-25-2020 End: 06-01-2022 Tobacco use and exposure Smokeless tobacco non-user [facility] Work Phone: Start: 05-12-2022 End: 08-21-2022 Tobacco use panel [facility] Adult Depression Screening Assessment 0 [facility] Clinical Notes 02-02-2016 to 06-13-2023 Telephone Encounter - Kassy Alanis - 06/13/2023 4:29 PM ESTTelephone Encounter - Rosibel Singh - 01/29/2023 9:14 AM EDTSnancy Luke PA-C - 08/21/2022 10:33 AM EDT Note Date & Type Note Facility 06-13-2023 Miscellaneous Notes Pharmacy verified in [facility] Patient has been identified by name and date of : Yes Patient aware RX will be sent to pharmacy. No need to notify patient. Patient phones for refill(s): Requested Prescriptions Pending Prescriptions Disp Refills albuterol HFA (PROVENTIL HFA, VENTOLIN HFA) 90 mcg/actuation inhaler 18 g 3 Sig: Inhale 2 Puffs as instructed every 4 hours as needed. aspirin, enteric coated (ECOTRIN LOW STRENGTH) 81 mg EC tablet 30 tablet 11 Sig: Take 1 tablet by mouth once daily. atorvastatin (LIPITOR) 40 mg tablet 30 tablet 11 Sig: Take 1 tablet by mouth once daily. cetirizine (ZYRTEC) 10 mg tablet 30 tablet 11 Sig: Take 1 tablet by mouth once daily. For allergies montelukast (SINGULAIR) 10 mg tablet 30 tablet 11 Sig: Take 1 tablet by mouth daily at bedtime. isosorbide mononitrate ER (IMDUR) 60 mg 24 hr tablet 30 tablet 11 Sig: Take 1 tablet by mouth once daily. Date of last office visit : 06/09/2022 Date of next office visit : Visit date not found Last 2 Encounter Wt Readings: Date: Wt: 05/03/2023 82.8 kg (182 lb 9.6 oz) 08/21/2022 84.4 kg (186 lb) Not applicable Please advise. Kassy Liang documented in this encounter [facility] 05-03-2023 Note HNO ID: [id number] Author: REYES BURNETT APRN.STEEL SAMPLER Service: ? Author Type: Nurse Practitioner Type: Progress Notes Filed: 05/03/2023 09:49 Note Text: Subjective Suture Removal Shannon Slaughter is a 63 year old female who presents with need for suture removal from left index finger. She had these placed on 04/23/24 at the emergency after cutting her finger. She denies pain or concerns; seems to have healed well. Review of Systems Constitutional: Negative for chills and fever. Musculoskeletal: Negative for joint pain. Skin: Negative for itching and rash. BP 169/78 Pulse 74 Temp 36.8 ?C (98.3 ?F) Resp 18 Wt 82.8 kg (182 lb 9.6 oz) SpO2 95% BMI 28.60 kg/m? PAST MEDICAL HISTORY Diagnosis Date Alcoholic psychosis NEC CAD (coronary artery disease) Agioplasty twice. Giacomo Nunez MD, [facility]. COPD (chronic obstructive pulmonary disease) ([facility]) FEV1 on 05/25/20. CXR c/w emphysema. chronic bronchitis. COPD with chronic bronchitis 05/25/2020 Other emphysema (HCC) 05/25/2020 Tobacco use disorder, continuous 04/16/2013 Unspecified asthma, with status asthmaticus PAST SURGICAL HISTORY Procedure Laterality Date DELIVERY ONLY , low cervical PAST SURGICAL HISTORY OF 1998 right foot removal spurs AND cyst x 2/ plates AND screws ALLERGIES Cotton, Dust, Feathers, and Grass Pollen MEDICATIONS albuterol HFA (PROVENTIL HFA, VENTOLIN HFA) 90 mcg/actuation inhaler Inhale 2 Puffs as instructed every 4 hours as needed. etodolac (LODINE) 400 mg tablet Take 1 tablet by mouth twice daily. atorvastatin (LIPITOR) 40 mg tablet Take 1 tablet by mouth once daily. aspirin, enteric coated (ECOTRIN LOW STRENGTH) 81 mg EC tablet Take 1 tablet by mouth once daily. cetirizine (ZYRTEC) 10 mg tablet Take 1 tablet by mouth once daily. For allergies montelukast (SINGULAIR) 10 mg tablet Take 1 tablet by mouth daily at bedtime. pantoprazole DR (PROTONIX) 40 mg tablet Take 1 tablet by mouth once daily. isosorbide mononitrate ER (IMDUR) 60 mg 24 hr tablet Take 1 tablet by mouth once daily. metFORMIN ER (GLUCOPHAGE XR) 500 mg 24 hr tablet Take 1 tablet by mouth daily with breakfast. (Patient not taking: Reported on 06/01/2022) tiotropium bromide (SPIRIVA RESPIMAT) 1.25 mcg/actuation mist Inhale 2 Puffs as instructed once daily. (Patient not taking: Reported on 06/01/2022) ipratropium 20 mcg-albuterol 100 mcg (COMBIVENT RESPIMAT) 20-100 mcg/actuation inhaler Inhale 1 Puff as instructed four times daily as needed. budesonide-formoterol (SYMBICORT) 160-4.5 mcg/actuation inhaler Inhale 2 Puffs as instructed twice daily. guaiFENesin (MUCINEX) 600 mg 12 hr tablet Take 2 tablets by mouth twice daily. (Patient not taking: Reported on 06/01/2022) benzonatate (TESSALON PERLES) 100 mg capsule Take 1-2 capsules tid prn, no more than 6 in 24 hours. (Patient not taking: Reported on 06/01/2022) sofosbuvir-velpatasvir (EPCLUSA) 400-100 mg Take 1 tablet by mouth once daily. FAMILY HISTORY Problem Relation Age of Onset Stroke Father Diabetes Paternal Grandmother Breast Cancer Maternal Aunt Cancer Paternal Uncle Throat COPD No Family History Emphysema No Family History Social History Tobacco Use Smoking status: Every Day Packs/day: .5 Types: Cigarettes Start date: 09/01/1984 Smokeless tobacco: Never Tobacco comments: Father smoked in childhood home. Currently, no smoking in her home. Vaping Use Vaping Use: Never used Substance Use Topics Alcohol use: No Drug use: No Objective Physical Exam Vitals and nursing note reviewed. Constitutional: Appearance: Normal appearance. Musculoskeletal: General: Tenderness present. No swelling. Hands: Skin: General: Skin is warm and dry. Findings: No bruising, erythema or rash. Neurological: Mental Status: She is alert. ASSESSMENT/PLAN: 1. Visit for suture removal - ICD9: V58.32, ICD10: Z48.02 - 5 sutures removed from left index finger. Patient tolerated procedure well. - cover with bandaid for the next 2-3 days for protection. Reyes Burnett APRN.[facility] 03-07-2023 Note Patient Outreach (IN TMMN) SHANNON SLAUGHTER ([id number]) 1960 F Date Time Provider Department 03/07/23 GREGORIA BAGLEY During your visit today, we recorded the following information about you: Allergies As of Date: 03/07/2023 Noted Allergy Reaction COTTON 03/27/2017 16 - Unknown DUST 03/27/2017 16 - Unknown FEATHERS 03/27/2017 16 - Unknown GRASS POLLEN 03/27/2017 16 - Unknown Date Reviewed: 08/21/2022 Reviewed by: Luanne Koo Ma - Fully Assessed Visit Diagnosis:Encounter for screening mammogram for breast cancer [Z12.31] Order(s):[facility] SCREENING [[id number]] Order #: [id number] FUTURE Prescriptions as of 03/12/2023 - albuterol HFA (PROVENTIL HFA, VENTOLIN HFA) 90 mcg/actuation inhaler Inhale 2 Puffs as instructed every 4 hours as needed. - etodolac (LODINE) 400 mg tablet Take 1 tablet by mouth twice daily. - atorvastatin (LIPITOR) 40 mg tablet Take 1 tablet by mouth once daily. - aspirin, enteric coated (ECOTRIN LOW STRENGTH) 81 mg EC tablet Take 1 tablet by mouth once daily. - cetirizine (ZYRTEC) 10 mg tablet Take 1 tablet by mouth once daily. For allergies - montelukast (SINGULAIR) 10 mg tablet Take 1 tablet by mouth daily at bedtime. - pantoprazole DR (PROTONIX) 40 mg tablet Take 1 tablet by mouth once daily. - isosorbide mononitrate ER (IMDUR) 60 mg 24 hr tablet Take 1 tablet by mouth once daily. - metFORMIN ER (GLUCOPHAGE XR) 500 mg 24 hr tablet Take 1 tablet by mouth daily with breakfast. - tiotropium bromide (SPIRIVA RESPIMAT) 1.25 mcg/actuation mist Inhale 2 Puffs as instructed once daily. - ipratropium 20 mcg-albuterol 100 mcg (COMBIVENT RESPIMAT) 20-100 mcg/actuation inhaler Inhale 1 Puff as instructed four times daily as needed. - budesonide-formoterol (SYMBICORT) 160-4.5 mcg/actuation inhaler Inhale 2 Puffs as instructed twice daily. - guaiFENesin (MUCINEX) 600 mg 12 hr tablet Take 2 tablets by mouth twice daily. - benzonatate (TESSALON PERLES) 100 mg capsule Take 1-2 capsules tid prn, no more than 6 in 24 hours. - sofosbuvir-velpatasvir (EPCLUSA) 400-100 mg Take 1 tablet by mouth once daily. Problem List As Of Date 03/07/2023 Noted Resolved Unspecified asthma, with status asthmaticus [J4* 02/02/2016 CAD (coronary artery disease) [I25.10] 04/16/2013 Hyperlipidemia with target LDL less than 70 [E7*04/16/2013 Chest pain [R07.9] 04/16/2013 Tobacco use disorder, continuous [F17.209] 04/16/2013 Chronic hepatitis C without hepatic coma (HCC) *05/18/2020 COPD with chronic bronchitis (HCC) [J44.89] 05/25/2020 Other emphysema (HCC) [J43.8] 05/25/2020 Encounter Status:Closed by MinuttaPRAVEENA on 03/12/23 [facility] 01-29-2023 Miscellaneous Notes Patient has been identified by name and date of : No Patient phones for refill(s): Requested Prescriptions Pending Prescriptions Disp Refills albuterol HFA (PROVENTIL HFA, VENTOLIN HFA) 90 mcg/actuation inhaler [Pharmacy Med Name: albuterol sulfate HFA 90 mcg/actuation aerosol inhaler] 18 g 3 Sig: Inhale 2 Puffs as instructed every 4 hours as needed. Date of last office visit in primary care: 06/09/22 Last 2 Encounter Wt Readings: Date: Wt: 08/21/2022 84.4 kg (186 lb) 06/09/2022 85.3 kg (188 lb) Previous labs/tests for medication: Not applicable Please advise. Thank you. Rosibel Singh documented in this encounter [facility] 08-21-2022 Note HNO ID: [id number] Author: Rabia Luke PA-C Service: ? Author Type: Physician Estimator And Drafter Supervisor Type: Progress Notes Filed: 08/21/2022 11:00 AM Note Text: Rabia Luke PA-C Department of Orthopaedics Orthopaedics [address] [facility] [address] Dept: [phone] Dept August 21, [address] Gregoria Bagley for an opinion regarding right hip pain, left shoulder pain. My final recommendations will be communicated back to the requesting physician by way of shared Medical record or letter to requesting physician via US mail. CHIEF COMPLAINT: New and Pain of the Right Hip, New and Pain of the Left Shoulder, and Referred by Dr. Bagley (Last seen by BP 02/06/19 Right hip pain/) Ms. Shannon Slaughter is a 62 year old female who presents with pain in her right hip which has been bothering her for many years. Pain is a 5 out of 10 deep aching in her groin. She states that when she rises from a chair or pivots in certain direction she gets a sharp jolt that radiates all the way through her body. She has difficulty with stairs, climbing in and out of a car and finding a comfortable position for sleep. She is not taking any type of an oral anti-inflammatory. She tells me that she had to stop it because it is bad for my kidneys . Patient had some recent renal functions which were normal. Patient is a tobacco user, she says she smokes a pack of cigarettes every 3 days. She also complains of pain in her left shoulder, the pain is a 10 out of 10 aching that is bothersome when she tries to use the arm to reach or trying to find a comfortable position for sleep. Patient is right-hand dominant. She denies any previous left shoulder injuries. Again she is not taking any type of an oral anti-inflammatory. ASSESSMENT: M16.11 Primary osteoarthritis of right hip (primary encounter diagnosis) M25.551 Right hip pain M25.512 Left shoulder pain, unspecified chronicity M19.012 Glenohumeral arthritis, left PLAN: Patient has moderate right hip osteoarthritis and moderate left shoulder glenohumeral joint arthritis. We discussed at the very least getting her back on an oral anti-inflammatory to help with her arthritis pain. I did offer to try a intra-articular injection of both the shoulder and hip, patient declines today. We briefly discussed total joint arthroplasty, the patient is not interested in any type of surgical intervention for her hip or shoulder at this time. Ms. Shannon Slaughter was advised as to contrast therapies and/or to take analgesics/anti-inflammatories as needed and all contraindications were reviewed. OBJECTIVE: Ms. Shannon Slaughter is a pleasant 62 year old in no apparent distress. Gen:Ht 5' 7 (1.70m) Wt 186 lb (84.4kg) BMI 29.12 kg/(m2). nl development, non obese, no deformities ENT: Normocephalic, normal hearing, moist mucosa CV: Pulses:Radial= 2+ and symmetric, capillary refill < 2 secs, no peripheral edema/varicosities Skin: no rash, bruising or lesions. Good turgor. Psych: cooperative and appropriate, alert and oriented x 3, good mood and affect. Musculoskeletal: HIP EXAM: Right: ROM: Extension: full extension Flexion: 110 degrees Internal Rotation: 20 degrees External Rotation: 25 degrees Abduction: 30 degrees Adduction: 30 degrees Strength: Pain with resisted hip flexion Palpation: Tenderness over right greater trochanter Log roll: non-painful. Straight leg raise: Negative Neurovascular Status: Sensation Intact, Moves foot and ankle up AND down, and 2+ dorsalis pedis Left shoulder is nontender over the SC joint, AC joint and clavicle. Mildly tender along the posterior aspect of the shoulder. Tender at the bicipital groove. Active forward elevation of 80 degrees, active external rotation of 45 degrees. Internal rotation to the ASIS. Passive forward elevation of 125 degrees, exam is limited by pain, passive external rotation of 40 degrees, again exam is limited by pain. Strength testing was not performed. Imaging: IMPRESSION: Osteoarthritis as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 notes she gets 4 inhalers every month. Patient notes she does not take medication She is still smoking. No problem-specific Assessment & Plan notes found for this encounter. PAST MEDICAL HISTORY Diagnosis Date Alcoholic psychosis NEC CAD (coronary artery disease) Agioplasty twice. Giacomo Nunez MD, [facility]. COPD (chronic obstructive pulmonary disease) (HCC) FEV1 on 05/25/20. CXR c/w emphysema. chronic bronchitis. COPD with chronic bronchitis (HCC) 05/25/2020 Other emphysema (HCC) 05/25/2020 Tobacco use disorder, continuous 04/16/2013 Unspecified asthma, with status asthmaticus PAST SURGICAL HISTORY Procedure Laterality Date DELIVERY ONLY , low cervical PAST SURGICAL HISTORY OF 1998 right foot removal spurs & cyst x 2/ plates & screws FAMILY HISTORY Problem Relation Age of Onset Stroke Father Breast Cancer Maternal Aunt Diabetes Paternal Grandmother Cancer Paternal Uncle Throat COPD No Family History Emphysema No Family History Social History Tobacco Use Smoking status: Current Every Day Smoker Packs/day: 0.50 Types: Cigarettes Start date: 09/01/1984 Smokeless tobacco: Never Used Tobacco comment: Father smoked in childhood home. Currently, no smoking in her home. Substance Use Topics Alcohol use: No Drug use: No Past medical history, appointments, medications, allergies reviewed. Pertinent Lab/Diagnostic Studies are reviewed and discussed today Current Outpatient Medications: aspirin, enteric coated (ECOTRIN LOW STRENGTH) 81 mg EC tablet metFORMIN ER (GLUCOPHAGE XR) 500 mg 24 hr tablet tiotropium bromide (SPIRIVA RESPIMAT) 1.25 mcg/actuation mist pantoprazole DR (PROTONIX) 40 mg tablet montelukast (SINGULAIR) 10 mg tablet isosorbide mononitrate ER (IMDUR) 60 mg 24 hr tablet famotidine (PEPCID) 20 mg tablet cetirizine (ZYRTEC) 10 mg tablet diclofenac, EC, (VOLTAREN) 75 mg EC tablet atorvastatin (LIPITOR) 40 mg tablet ipratropium 20 mcg-albuterol 100 mcg (COMBIVENT RESPIMAT) 20-100 mcg/actuation inhaler budesonide-formoterol (SYMBICORT) 160-4.5 mcg/actuation inhaler guaiFENesin (MUCINEX) 600 mg 12 hr tablet benzonatate (TESSALON PERLES) 100 mg capsule sofosbuvir-velpatasvir (EPCLUSA) 400-100 mg Review of Systems CONSTITUTIONAL: No fevers, chills night sweats, unintended weight loss CARDIOVASCULAR: No chest pain, dyspnea, palpitations, orthopnea, PND, ankle edema. PULM: No dyspnea, unexplained cough. GI: No dysphagia/odynophagia, problematic reflux, constipation, diarrhea, changes in stool habits, hematochezia, melena. : No new urinary complaints, including dysuria, gross hematuria or pyuria. NEURO: No new balance problems, peripheral weakness/paresthesias or numbness of concern. Physical Exam BP 112/62 (BP Site: Left Arm, BP Position: Sitting, BP Cuff Size: Large Adult) Pulse 72 Temp 36.7 C (98 F) Resp 12 Ht 165.1 cm (5' 5 ) Wt 79.8 kg (176 lb) SpO2 96% BMI 29.29 kg/m General appearance: Well appearing, alert, in no acute distress, well nourished. Skin: Skin color, texture, turgor normal, no suspicious rashes or lesions Head: Normocephalic, no masses, lesions, tenderness or abnormalities Eyes: Anicteric sclera. Pupils are equally round and reactive to light. Extraocular movements are intact. Lungs: Lungs clear to auscultation. No wheezing, rhonchi, rales Heart: RRR without murmur, gallop, or rubs. Extremities: No deformities, edema, skin discoloration, clubbing or cyanosis. Good capillary refill. ASSESSMENT/PLAN: 1. Other emphysema (HCC) - ICD9: 492.8, ICD10: J43.8 (primary diagnosis) Cont the symbicort 160.4.5 2. COPD with chronic bronchitis (HCC) - ICD9: 491.20, ICD10: J44.9 To continue the inhalers 3. Prediabetes - ICD9: 790.29, ICD10: R73.03 - HGB A1C 4. Chronic hepatitis C without hepatic coma (HCC) - ICD9: 070.54, ICD10: B18.2 5. Tobacco use disorder, continuous - ICD9: 305.1, ICD10: F17.209 - Cessation encouraged. - Physiologic and physical aspects of tobacco addiction as well as strategies for quitting were discussed. - Counseling was given focusing on the harmful effects of this addiction especially given the patient's medical condition(s) which will be worsened because of the chemicals in tobacco. 6. Hyperlipidemia with target LDL less than 70 - ICD9: 272.4, ICD10: E78.5 - good control - Continue current medication. Gregoria Bagley MD documented in this encounter [facility] documented as of this encounter (statuses as of 11/28/2021) [facility] History of Past illness Narrative* Problem Noted Date Resolved Date Unspecified asthma, with status asthmaticus 02/02/2016 Last Assessment & Plan: Spiriva, singulair, proair HFA and she is on advair too but she is doing it as needed. She was documented as of this encounter (statuses as of 12/02/2021) [facility] History of Past illness Narrative* Problem Noted Date Resolved Date Unspecified asthma, with status asthmaticus 02/02/2016 Last Assessment & Plan: Spiriva, singulair, proair HFA and she is on advair too but she is doing it as needed. She was documented as of this encounter (statuses as of 12/09/2021) [facility] History of Past illness Narrative* Problem Noted Date Resolved Date Unspecified asthma, with status asthmaticus 02/02/2016 Last Assessment & Plan: Spiriva, singulair, proair HFA and she is on advair too but she is doing it as needed. She was documented as of this encounter (statuses as of 02/08/2022) [facility] History of Past illness Narrative* Problem Noted Date Resolved Date Unspecified asthma, with status asthmaticus 02/02/2016 Last Assessment & Plan: Spiriva, singulair, proair HFA and she is on advair too but she is doing it as needed. She was documented as of this encounter (statuses as of 05/19/2022) [facility] History of Past illness Narrative* Problem Noted Date Resolved Date Unspecified asthma, with status asthmaticus 02/02/2016 Last Assessment & Plan: Spiriva, singulair, proair HFA and she is on advair too but she is doing it as needed. She was documented as of this encounter (statuses as of 06/09/2022) [facility] History of Past illness Narrative* Problem Noted Date Resolved Date Unspecified asthma, with status asthmaticus 02/02/2016 Last Assessment & Plan: Spiriva, singulair, proair HFA and she is on advair too but she is doing it as needed. She was documented as of this encounter (statuses as of 06/15/2022) [facility] History of Past illness Narrative* Problem Noted Date Resolved Date Unspecified asthma, with status asthmaticus 02/02/2016 Last Assessment & Plan: Spiriva, singulair, proair HFA and she is on advair too but she is doing it as needed. She was documented as of this encounter (statuses as of 06/15/2022) [facility] History of Past illness Narrative* Problem Noted Date Resolved Date Unspecified asthma, with status asthmaticus 02/02/2016 Last Assessment & Plan: Spiriva, singulair, proair HFA and she is on advair too but she is doing it as needed. She was documented as of this encounter (statuses as of 06/19/2022) [facility] History of Past illness Narrative* Problem Noted Date Resolved Date Unspecified asthma, with status asthmaticus 02/02/2016 Last Assessment & Plan: Spiriva, singulair, proair HFA and she is on advair too but she is doing it as needed. She was documented as of this encounter (statuses as of 08/21/2022) [facility] History of Past illness Narrative* Problem Noted Date Diagnosed Date Resolved Date Unspecified asthma, with status asthmaticus 02/02/2016 Last Assessment & Plan: Spiriva, singulair, proair HFA and she is on advair too but she is doing it as needed. She was documented as of this encounter (statuses as of 01/30/2023) [facility] History of Past illness Narrative* Problem Noted Date Diagnosed Date Resolved Date Unspecified asthma, with status asthmaticus 02/02/2016 Last Assessment & Plan: Spiriva, singulair, proair HFA and she is on advair too but she is doing it as needed. She was documented as of this encounter (statuses as of 03/12/2023) [facility] History of Past illness Narrative* Problem Noted Date Diagnosed Date Resolved Date Unspecified asthma, with status asthmaticus 02/02/2016 Last Assessment & Plan: Spiriva, singulair, proair HFA and she is on advair too but she is doing it as needed. She was documented as of this encounter (statuses as of 06/14/2023) [facility] Other emphysema (HCC)- Primary Other emphysema COPD with chronic bronchitis (HCC) Obstructive chronic bronchitis without exacerbation Prediabetes Other abnormal glucose Chronic hepatitis C without hepatic coma (HCC) Chronic hepatitis C without mention of hepatic coma Tobacco use disorder, continuous Tobacco use disorder Hyperlipidemia with target LDL less than 70 Other and unspecified hyperlipidemia [facility] Prediabetes- Primary Other abnormal glucose [facility] Diagnosis Medication management Encounter for long-term (current) use of other medications Hyperlipidemia with target LDL less than 70 Other and unspecified hyperlipidemia [facility] Patient left without being seen- Primary Surgical or other procedure not carried out because of patient's decision [facility] Diagnosis Mixed hyperlipidemia [facility] Diagnosis Primary osteoarthritis of right hip- Primary Primary localized osteoarthrosis, pelvic region and thigh Right hip pain Pain in joint, pelvic region and thigh Left shoulder pain, unspecified chronicity Glenohumeral arthritis, left [facility] Diagnosis Encounter for screening [facility]ogram for [facility] cancer [facility] Mixed hyperlipidemia Environmental allergies Other allergy, other than to medicinal agents [facility] Diagnostic Procedure Only (Routine) - Pending Review Specialty Diagnoses / Procedures Referred By Kemi bass Referred To Contact [facility] Diagnoses Encounter for screening mammogram for breast cancer Procedures GILBERT SCREENING SCREENING MAMMOGRAPHY BI 2-VIEW BREAST INC CAD Gregoria Bagley MD [address] [place] [address] [facility] [address] [place] [address] Referral ID Status Reason Start Date Expiration Date Visits Requested Visits Authorized [id number] Pending Review Auto-Generat ed Referral 03/07/2023 04/05/2024 1 1 [facility] Summary Purpose Family History No Family History Records FoundNo Family History Records Found Advance Directives No Advanced Directives Records FoundNo Advanced Directives Records Found Reason for Referral Specialty Diagnoses / Procedures Referred By Kemi bass Referred To Contact Mari Abdul APRN.CNP [address] [place] [address] Referral ID Status Reason Start Date Expiration Date Visits Re quested Visits Authorized [id number] Closed 1 1 Additional Source Comments INFORMATION SOURCE (unrecogn ized section and content) DATE CREATED AUTHOR AUTHOR'S ORGANIZ ATION 05/04/2023 [facility] Source Comments (unrecognize d section and content) In the event this informatio n is protected by the Federal Confidentiality of Alcohol and Drug Abuse Patient Records regulations: The Federal rules restrict any use of the information to criminally investigate or prosecute any alcohol or drug abuse patient.[facility] the event this information is protected by the Federal Confidentiality of Alcohol and Drug Abuse Patient Records regulations: The Federal rules restrict any use of the information to criminally investigate or prosecute any alcohol or drug abuse patient.[facility] the event this information is protected by the Federal Confidentiality of Alcohol and Drug Abuse Patient Records regulations: The Federal rules restrict any use of the information to criminally investigate or prosecute any alcohol or drug abuse patient.[facility] the event this information is protected by the Federal Confidentiality of Alcohol and Drug Abuse Patient Records regulations: The Federal rules restrict any use of the information to criminally investigate or prosecute any alcohol or drug abuse patient.[facility] the event this information is protected by the Federal Confidentiality of Alcohol and Drug Abuse Patient Records regulations: The Federal rules restrict any use of the information to criminally investigate or prosecute any alcohol or drug abuse patient.[facility] the event this information is protected by the Federal Confidentiality of Alcohol and Drug Abuse Patient Records regulations: The Federal rules restrict any use of the information to criminally investigate or prosecute any alcohol or drug abuse patient.[facility] the event this information is protected by the Federal Confidentiality of Alcohol and Drug Abuse Patient Records regulations: The Federal rules restrict any use of the information to criminally investigate or prosecute any alcohol or drug abuse patient.[facility] the event this information is protected by the Federal Confidentiality of Alcohol and Drug Abuse Patient Records regulations: The Federal rules restrict any use of the information to criminally investigate or prosecute any alcohol or drug abuse patient.[facility] the event this information is protected by the Federal Confidentiality of Alcohol and Drug Abuse Patient Records regulations: The Federal rules restrict any use of the information to criminally investigate or prosecute any alcohol or drug abuse patient.[facility] the event this information is protected by the Federal Confidentiality of Alcohol and Drug Abuse Patient Records regulations: The Federal rules restrict any use of the information to criminally investigate or prosecute any alcohol or drug abuse patient.[facility] the event this information is protected by the Federal Confidentiality of Alcohol and Drug Abuse Patient Records regulations: The Federal rules restrict any use of the information to criminally investigate or prosecute any alcohol or drug abuse patient.[facility] the event this information is protected by the Federal Confidentiality of Alcohol and Drug Abuse Patient Records regulations: The Federal rules restrict any use of the information to criminally investigate or prosecute any alcohol or drug abuse patient.[facility] the event this information is protected by the Federal Confidentiality of Alcohol and Drug Abuse Patient Records regulations: The Federal rules restrict any use of the information to criminally investigate or prosecute any alcohol or drug abuse patient.[facility] Reason for Visit (unrecogniz ed section and content) Reason Comments Results Reason Onset Date Comments Refill Request 12/08/2021 Reason Onset Date Comments Refill Request 02/06/2022 Reason Comments Follow Up 6 month Reason Onset Date Comments Refill Request 06/14/2022 Reason Comments New Pain Referred by Dr. Bagley Last seen by BP Right hip pain Specialty Diagnoses / Procedures Referred By Kemi bass Referred To Contact Orthopedics Diagnoses Right hip pain Left shoulder pain, unspecified chronicity Procedures CONSULT TO ORTHOPAEDICS OFFICE/OUTPATIENT NEW HIGH MDM 60-74 MINUTES Gregoria Bagley MD [address] [place] [address] Referral ID Status Reason Start Date Expiration Date V isits Requested Visits Authorized [id number] Closed PCP Requested Referral 06/09/2022 06/09/2023 1 1 Reason Comments Refill Request Reason Onset Date Comments Refill Request 06/13/2023 Care Teams (unrecognized sec tion and content) 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 Relationship Specialty Start Date End Date Gregoria Bagley MD [address], [place] [id number] PCP - General Internal Medicine 04/16/13 [place] [phone] Physician Cardiology 11/17/19 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 Relationship Specialty Start Date End Date Gregoria Bagley MD [address], [place] [id number] PCP - General Internal Medicine 04/16/13 Maxwell Roldan [address] [place] [phone] 100- Physician Cardiology 11/17/19 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 Relationship Specialty Start Date End Date Gregoria Bagley MD [address] [facility] [place] [address] PCP - General Internal Medicine 04/16/13 Maxwell Roldan [address] [place] [place] [address] Physician Cardiology 11/17/19 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 Relationship Specialty Start Date End Date Gregoria Bagley MD [address] [facility] [place] [address] PCP - General Internal Medicine 04/16/13 Maxwell Roldan [address] [facility] [place] [address] Physician Cardiology 11/17/19 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 Relationship Specialty Start Date End Date Gregoria Bagley MD [address] [facility] [place] [address] PCP - General Internal Medicine 04/16/13 Maxwell Roldan [address] [facility] [place] [address] Physician Cardiology 11/17/19 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 Relationship Specialty Start Date End Date Gregoria Bagley MD [address] [facility] [place] [address] PCP - General Internal Medicine 04/16/13 Maxwell Roldan [address] [place] [address] Physician Cardiology 11/17/19 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 Relationship Specialty Start Date End Date Gregoria Bagley MD [address] [facility] [place] [address] PCP - General Internal Medicine 04/16/13 Maxwell Roldan [address] [facility] [place] [phone] Physician Cardiology 11/17/19 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 Relationship Specialty Start Date End Date Gregoria Bagley MD [address] [place], [place] [id number] PCP - General Internal Medicine 04/16/13 Maxwell Roldan MD [address] [facility] [place] [phone] Physician Cardiology 11/17/19 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 Relationship Specialty Start Date End Date Gregoria Bagley MD [address], [place] [address] PCP - General Internal Medicine 04/16/13 Maxwell Roldan MD [address] [facility] [place] [phone] Physician Cardiology 11/17/19 FOR RECORDS PERTAINING TO PATIENTS WHO ARE OR HAVE BEEN ENROLLED IN A CHEMICAL DEPENDENCY/SUBSTANCEABUSE PROGRAM, SOME INFORMATION MAY BE OMITTED. This clinical summary was aggregated from multiple sources. Caution should be exercised in using it in the provision of clinical care. This summary normalizes information from multiple sources, and as a consequence, information in this document may materially change the coding, format and clinical context of patient data. In addition, data may be omitted in some cases. CLINICAL DECISIONS SHOULD BE BASED ON THE PRIMARY CLINICAL RECORDS. [employer] provides no warranty or guarantee of the accuracy or completeness of information in this document.
== END | disposition home or self-care (01) ==
PROVIDERS: PCP Internal Medicine; Referring Provider Nurse Practitioner Acute Care; Visit Provider Nurse Practitioner Acute Care
DX: F17.210 Nicotine dependence, cigarettes, uncomplicated (principal)
CPT/HCPCS: 71271

== ENCOUNTER 2024-03-16 08:45 | Observation (INO) | payer MEDICARE, MEDICAID, SELFPAY ==
[2024-03-16] VITALS (12 sets, daily range): BP systolic 128–163; BP diastolic 58–124; PULSE 54–78; RESP 16–22; TEMP 36.2–36.6; O2SAT 94–100; BMI 29.2; BMI 29.5
--- NOTE | 2024-03-16 08:57 | RAD_ITS ---
HISTORY: chest pain. TECHNIQUE: XR Chest 1 View. COMPARISON: 10/01/2019. FINDINGS: CARDIOMEDIASTINAL BORDERS: Cardiac silhouette within normal limits in size. Mediastinal contour also unchanged with calcification of the aortic knob. LUNGS: Radiographically clear. PLEURA: No pleural effusion or pneumothorax seen. OSSEOUS STRUCTURES: Mild degenerative change. RAD/Chest 1 View (Portable) IMPRESSION: No acute cardiopulmonary process identified. Electronically Signed: Taryn Butts MD at 9:31 EST ,
--- NOTE | 2024-03-16 08:57 | EKG12_ITS ---
Test Reason : CP Blood Pressure : */* mmHG Vent. Rate : 67 BPM Atrial Rate : 67 BPM P-R Int : 156 ms QRS Dur : 72 ms QT Int : 434 ms P-R-T Axes : 68 60 47 degrees QTcB Int : 458 ms Normal sinus rhythm Nonspecific ST abnormality Abnormal ECG Confirmed by TAD TRAMMELL, REMBERTO ([id number]), editor managing director WAYLON REBOLLAR ([id number]) on 03/17/2024 9:42:53 AM Referred By: WEI/SARAH Confirmed By: REMBERTO MISHRA MD
--- NOTE | 2024-03-16 08:59 | EDS_ITS ---
HPI History of Present Illness Chief Complaint: Chest Pain Informant: patient and family Onset/Context/Timing Onset: Weeks Activity at onset: gradual Timing: Continuous Quality: Positive for Aching, Dull, Heaviness, Pain and Pressure Location: Substernal Current Severity: Mild Maximum Severity: Moderate Worsened By: Exertion Relieved By: Nothing Associated Symptoms: Positive for Nausea, Vomiting and Dyspnea (Patient is always short of breath this is not new.) Narrative Narrative: 64-year-old female history of COPD, hep C, CAD with 2 prior angioplasties no stents. She is on aspirin but no other blood thinners. States for least 2 weeks she has had chronic midsternal chest pain. At times it will radiate to both arms. Worse with exertion. Chronically short of breath that is nonspecifically new. She denies any abdominal pain. She is having nausea and vomiting the last 2 days due to the pain. Denies any fever or chills. Denies any abdominal pain. Denies any dysuria. Denies any fever. No history of DVT or PE. No recent travel, surgery or immobilization. No recent hospitalization. Prior Similar Symptoms: Yes Recent Illness/Hospitalization: No CVD Risk Factors: Positive for Hypertension and Smoking; Negative for Diabetes PE Risk Factors: Negative for Recent Travel/Surgery, Recent Immobilization, Prior DVT or PE or OCP + Smoking + >/=35 TAD Risk Factors: Negative for Marfan's Syndrome [facility] Medical History Emphysema lung Hepatitis C Pure hypercholesterolemia Atherosclerotic heart disease of [place] coronary artery without angina pectoris COPD (chronic obstructive pulmonary disease) CAD (coronary artery disease) Home Medications ?Medication ?Instructions ?Recorded ?Last Taken ?Type aspirin 81 mg chewable tablet 81 mg PO DAILY@0800 04/04/17 Unknown History atorvastatin 40 mg tablet 40 mg PO DAILY 04/04/17 Unknown History pantoprazole 40 mg tablet,delayed 40 mg PO DAILY PRN gerd 02/25/21 Unknown History release isosorbide mononitrate 60 mg 60 mg PO DAILY 03/10/22 Unknown History tablet,extended release 24 hr montelukast 10 mg tablet 10 mg PO DAILY #90 tabs 06/01/22 Unknown Rx budesonide 160 mcg-glycopyr 9 2 inh inhalation BID #10.7 grams 07/10/23 Unknown Rx mcg-formot 4.8 mcg/actuation HFA inhaler (Breztri Aerosphere) albuterol sulfate 90 mcg/actuation 2 puff inhalation Q4H PRN PRN Sob 02/04/24 Unknown Rx aerosol inhaler &/Or Wheezing #8.5 grams Allergy/AdvReac Type Severity Reaction Status Date / Time No Known Allergies Allergy Verified 03/16/24 08:48 Family History Grandmother Diabetes Surgical History S/P PTCA (percutaneous transluminal coronary angioplasty) History of foot surgery History of section History of percutaneous transluminal coronary angioplasty Social History Smoking Status: Current every day smoker tobacco type: cigarettes alcohol intake: never substance use type: does not use caffeine: Yes Type: coffee Number of servings: 1 ROS ROS ED ROS Narrative Chest pain because in 2 weeks. Chronic shortness of breath not new. Nausea and vomiting. Constitutional Constitutional ED: Denies chills or fever(s) Eyes Eyes: Reports none ENT ENT ED: Denies ear pain Cardiovascular Cardiovascular: Reports as per HPI and chest pain; Denies palpitations or racing heartbeat Respiratory/Chest Respiratory/Chest: Reports dyspnea and dyspnea on exertion; Denies cough Gastrointestinal Gastrointestinal: Reports nausea and vomiting; Denies abdominal pain, constipation, diarrhea or melena Genitourinary Genitourinary ED: Denies dysuria or hematuria Musculoskeletal Musculoskeletal: Denies arthralgias Integumentary Denies abscess or Abrasions Neurologic Neurologic: Denies headache(s) Psychiatric Psychiatric: Denies anxiety Endocrine Endocrinology: Denies cold intolerance Hematologic/Lymphatic Hematologic/Lymphatic: Denies easy bleeding or easy bruising Allergic/Immunologic Allergic/Immunologic ED: Denies mouth swelling, tongue swelling or urticaria EXAM Physical Exam Narrative Exam Narrative: 64-year-old female sitting upright in bed. Vital signs are stable afebrile. Pulse ox 96% on room air no hypoxia. Family at bedside. H EENT exam pupils round react to light. Motions are intact. Moist mucous membranes. Neck nontender no JVD. Lungs clear to auscultation bilateral. Heart regular rate and rhythm rate about 75 no murmur. Chest wall and ribs no specific reproducible pain. No ecchymosis or bruising. No crepitance. No redness. Abdomen is soft, nontender, nondistended normal bowel sounds without peritoneal signs. She has no reproducible abdominal pain. No epigastric or right upper quadrant tenderness. Moving all 4 extremities. 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 Dorsi plantarflexion intact. Equal symmetrical radial pulses. Calves are nontender without edema or cords. Backs nontender. Neurologically she is awake alert no focal motor deficits. Const Vital Signs: 03/16/24 08:47 03/16/24 08:55 03/16/24 09:02 Temperature 97.2 F L Temperature Source Temporal Pulse Rate 76 Respiratory Rate 22 H Blood Pressure 163/81 H Blood Pressure Mean 108 Pulse Ox 96 98 Oxygen Delivery Method Room Air Nasal Cannula Room Air Oxygen Flow Rate (L/min) 2 03/16/24 09:15 03/16/24 09:21 Temperature Temperature Source Pulse Rate 62 67 Respiratory Rate Blood Pressure 163/81 H 149/67 H Blood Pressure Mean Pulse Ox Oxygen Delivery Method Oxygen Flow Rate (L/min) Positive well nourished and well developed; Negative for cachectic, contractures or unkempt General Appearance ED: well developed and NAD; Negative for unkempt, cachectic, contractures or pallor Nutritional Appearance: Negative for cachectic HEENT Reports moist mucous membranes normocephalic and atraumatic; Negative for trauma or tenderness Eyes PERRL and EOMs intact bilaterally Neck no lymphadenopathy, supple and no JVD General: Negative for tenderness Chest Wall inspection of chest normal and palpation of chest normal Chest: Negative for tenderness Resp normal respiratory effort and clear to auscultation bilaterally Effort and Inspection: Negative for respiratory distress Auscultation: Negative for rales, rhonchi or wheezes Cardio regular rate, regular rhythm, S1 normal heart sound, S2 normal heart sound and no murmurs Rate: Negative for bradycardia or tachycardic Rhythm: Negative for abnormal rhythm Peripheral Pulses: pulses 2+ throughout GI normal to inspection, nondistended, normoactive bowel sounds, soft to palpation, non-tender, non-distended and no masses Auscultation: Negative for hyperactive bowel sounds Palpation: Negative for splenomegaly, mass or other Back/Spine no CVA tenderness and no thoracic nor lumbar tenderness Extremity normal to inspection General Extremety ED: Negative for edema, pulses abnormal or tenderness General Extremity: Negative for edema or pulses abnormal Neuro oriented x3 and CN's II-XII intact bilaterally Sensorium / Orientation: awake, alert, oriented to person, oriented to place and oriented to time; Negative for confused, lethargic or stuporous Motor Exam: strength 5/5 throughout Psych mental status grossly normal Appearance: Negative for unkempt Attitude: No agitated Mood & Affect: Negative for depressed, anxious or tearful Skin no rashes or lesions noted and no wounds General Skin Exam: Negative for jaundice, pallor or other Rashes: No rashes noted Trauma: Negative for abrasion or laceration Heart Score History: Moderately Suspicious ECG: Normal Age: >/= 65 years Risk Factors: >/= 3 Risk Factors or History of CAD Score: 5 MDM MDM MDM Narrative Medical decision making narrative: 64-year-old female to primary angioplasties years ago. No stents. Complaining of midsternal chest pain for 2 weeks. Associated nausea and vomiting. She has no reproducible abdominal pain. Clinically this may be cardiac. Rule out SC or ischemia. Differential would also include gastritis, esophagitis, ulcer, pancreatitis or liver disease but she has got no reproducible pain. Repeat exam patient was given sublingual nitro and her pain went from 1128 and she would not take anymore the nitro because of headache. She will be given Tylenol for the headache. Her exam is unchanged. I have gone over all of her test results with both her and I believe it is her daughter in the room. Her exam is unremarkable. Her labs, chest x-ray and EKG unremarkable. She has not had a cardiac cath for years. She has had both coronary disease which she has required angioplasty and blockage of a valve in her heart which she required angioplasty. They are not comfortable with her being discharged home and I do not have a specific cause for pain I have the hospitalist on page for admission. History & Record Review Discussion w/independent historian: Patient and Family Additional record(s) reviewed:: Prior inpatient record, Prior outpatient record, Prior ED visit and Prior labs Lab Data Attestation: I reviewed the patient's lab results. Lab results narrative: CBC shows white count 1.8. H&H of 15.5 and 46. Platelets 405. Chest x-ray chronic changes no acute process. EKG unremarkable. Chemistry showed gap 7. Normal BUN and creatinine. Glucose 154. Liver enzymes normal. Lipase normal at 22. Troponin is normal at 5 and she has had 2 weeks of constant pain. Labs: Laboratory Results - last 24 hr 03/16/24 08:50 WBC 11.8 H RBC 5.11 Hgb 15.5 H Hct 46.5 MCV 91.0 MCH 30.3 MCHC 33.3 RDW Std Deviation 43.8 RDW Coeff of Iván 13.1 Plt Count 405 MPV 9.3 Immature Gran % (Auto) 0.300 Neut % (Auto) 65.3 Lymph % (Auto) 24.0 Owen % (Auto) 8.2 Eos % (Auto) 1.4 Baso % (Auto) 0.8 Absolute Neuts (auto) 7.7 Absolute Lymphs (auto) 2.82 Nucleated RBC % 0 Sodium 138 Potassium 3.8 Chloride 105 Carbon Dioxide 26.0 Anion Gap 7 BUN 13 Creatinine 0.95 Estim Creat Clear Calc 66.06 Est GFR (MDRD) Af Amer 76 Est GFR (MDRD) Non-Af 63 BUN/Creatinine Ratio 13.7 Glucose 154 H Calcium 9.4 Total Bilirubin 0.50 Direct Bilirubin 0.11 AST 24 ALT 15 Alkaline Phosphatase 112 Troponin I High Sens 5 Total Protein 7.9 Albumin 4.0 Globulin 3.9 Lipase 22 Radiography Chest X-Ray - ED: 1 View, Read by ED Physician, Heart, Lungs, Mediastinum, Bony Structures, No Acute Disease and Chronic Changes Diagnostic Testing: Chest x-ray, portable, single view interpreted by myself shows no acute abnormality. Normal cardiac silhouette. Normal mediastinum. Chronic changes in the lung campos. No pneumonia. No acute process. Rhythm Strip Rhythm Strip: Sinus Rhythm Rate: 67 Ectopy: None EKG Initial EKG: Attestation: I personally reviewed and interpreted this EKG as follows: Interpretation: Sinus Rhythm and No Acute Injury Pattern Comments: Normal sinus rhythm rate of 67 no acute signs of SC or ischemia. EKG unchanged from prior in 2019. Prior EKG tracings: available for review Prior: Unchanged Discharge Plan Triage Chief Complaint: Chest Pain ED Provider: Lizandro Evans Dx/Rx/DC Orders Prescriptions: No Action pantoprazole 40 mg tablet,delayed release (DR/EC) 40 mg PO DAILY PRN (Reason: gerd) isosorbide mononitrate 60 mg tablet extended release 24 hr 60 mg PO DAILY Breztri Aerosphere 160-9-4.8 mcg/actuation HFA aerosol inhaler 2 inh inhalation BID Qty: 10.7 6RF atorvastatin 40 MG tablet 40 mg PO DAILY aspirin 81 MG tablet,chewable 81 mg PO DAILY@0800 montelukast 10 mg tablet 10 mg PO DAILY Qty: 90 3RF albuterol sulfate 90 mcg/actuation HFA aerosol inhaler 2 puff inhalation Q4H PRN PRN (Reason: Sob &/Or Wheezing) Qty: 8.5 3RF Primary Care Provider: Gregoria Quinn Referrals: Gregoria Quinn MD [Primary Care Provider] - Print Language: Vietnamese
[2024-03-16 09:08] LABS: Absolute Lymphocyte Count 2.82 X10^3/uL (0.83-4.51); Absolute Neutrophil Count 7.7 X10^3/uL (2.0-7.7); Basophil# 0.09 X10^3/uL; Basophil% 0.8 % (0-1); Eosinophil# 0.17 X10^3/uL; Eosinophils% 1.4 % (0-5); Hematocrit 46.5 % (37-47); Hemoglobin 15.5 g/dL (12.0-15.0); Lymphocyte # 2.82 X10^3/ul (0.83-4.51); Mean Corp Hgb Conc 33.3 g/dL (32-36); Mean Corpuscular Hgb 30.3 pg (27.0-32.0); Mean Platelet Vol. 9.3 fl (6.2-12.0); Monocyte# 0.96 X10^3/uL; Monocyte% 8.2 % (0-10); NRBC Flagged by Analyzer 0 % (0-5); Neutrophil # 7.68 X10^3/uL (2.7-7.7); Neutrophil % 65.3 % (47-70); Platelet Count 405 K/mm3 (150-450); RBC Distribution Width CV 13.1 % (11.6-14.6); RBC Distribution Width SD 43.8 fl (35.1-43.9); Red Blood Count 5.11 M/mm3 (4.2-5.4); White Blood Count 11.8 K/mm3 (4.4-11.0)
[2024-03-16] MEDS: Ondansetron 4 MG/2 ML Vial IV ×3 (09:09→15:17)
[2024-03-16] MEDS: Aspirin 81 MG TAB.CHEW 324 MG PO (09:14)
[2024-03-16] MEDS: Nitroglycerin SL (ED/IMG/CATH) 0.4 MG TABLET SL ×2 (09:15→09:21)
[2024-03-16 09:27] LABS: AST(SGOT) 24 U/L (15-37); Alanine Aminotransfer ALT/SGPT 15 U/L (13-56); Alkaline Phosphatase 112 U/L (45-117); Anion Gap 7 (5-15); BUN 13 mg/dL (7-18); BUN/Creat Ratio 13.7 RATIO (10-20); Bilirubin, Direct 0.11 mg/dL (0.00-0.30); Calcium,Total 9.4 mg/dL (8.5-10.1); Chloride 105 mmol/L (98-107); Creatinine, Serum 0.95 mg/dL (0.55-1.02); EST Glomerular Filtration Rate 63 mL/min (>60); Est Glom Filt Rate - Afr Amer 76 mL/min (>60); Estimated Creatinine Clearance 66.06 ml/min; Globulin 3.9 g/dL (2.2-4.2); Glucose 154 mg/dL (74-106); Lipase 22 U/L (13-75); Potassium 3.8 mmol/L (3.5-5.1); Protein, Total 7.9 g/dL (6.4-8.2); Sodium Level 138 mmol/L (136-145); Troponin-I HS 5 pg/mL (3.0-54.0)
[2024-03-16] MEDS: Acetaminophen 500 MG Tablet 1000 MG PO (09:32)
[2024-03-16] MEDS: Morphine 4 MG/ML Syringe IV (09:46)
--- NOTE | 2024-03-16 11:04 | EKG12_ITS ---
Test Reason : CP Blood Pressure : */* mmHG Vent. Rate : 61 BPM Atrial Rate : 61 BPM P-R Int : 168 ms QRS Dur : 72 ms QT Int : 452 ms P-R-T Axes : 62 35 24 degrees QTcB Int : 455 ms Normal sinus rhythm Normal ECG No previous ECGs available Confirmed by TAD TRAMMELL, REMBERTO ([id number]), book or script editor WAYLON REBOLLAR ([id number]) on 03/17/2024 2:03:45 PM Referred By: CATHY Confirmed By: REMBERTO MISHRA MD
--- NOTE | 2024-03-16 11:10 | CPS ---
Pt told this RT not to even open stuff for aerosols, that she will not take them ever again. Says aerosols hurt her chest. RT sent message to Dr Sotomayor and order was discontinued.
[2024-03-16 11:45] LABS: Troponin-I HS 5 pg/mL (3.0-54.0)
[2024-03-16] MEDS: 0.9% Saline Lock 10 ML Syringe IV ×4 (12:11→22:11)
[2024-03-16] MEDS: proCHLORPERazine 10 MG/2 ML Vial IV (12:11)
[2024-03-16] MEDS: Heparin Injection (Vial) 5,000 UNIT/ML VIAL 5000 UNIT SC ×2 (12:11→22:14)
[2024-03-16] MEDS: Morphine 2 MG/ML Syringe IV ×2 (12:12→15:17)
--- NOTE | 2024-03-16 13:13 | PCM.HP.STD ---
HPI - General General Date of Admission: 03/16/24 Date of Service: 03/16/24 HPI Narrative CLAYTON MOSQUEDA, is a 64 F who presents to the emergency room at [facility] with complaints of lower midsternal chest pain that has been going on for 2 weeks. Patient told the ER physician that it radiated in both arms at times and it was worse with exertion. Patient has a history of COPD and currently smokes, she states she chronically has wheezing but does not like to use inhalers because they do not do any good. Patient was also complaining of some nausea and vomiting patient has a history of coronary artery disease but no stents, she only had angioplasty. Workup in the emergency room included a chest x-ray which was unremarkable, patient's chemistry profile was remarkable for a glucose of 154. Cardiac enzymes were unremarkable, CBC was unremarkable, EKG showed no acute ischemic changes Patient will be placed in basis of some PCU, additional troponin will be obtained, echocardiogram will be ordered and she will be scheduled for nuclear stress test of her enzymes remain normal. [facility] Medical History Emphysema lung Hepatitis C Pure hypercholesterolemia Atherosclerotic heart disease of [place] coronary artery without angina pectoris COPD (chronic obstructive pulmonary disease) CAD (coronary artery disease) Home Medications ?Medication ?Instructions ?Recorded ?Last Taken ?Type aspirin 81 mg chewable tablet 81 mg PO DAILY@0800 04/04/17 03/16/24 History atorvastatin 40 mg tablet 40 mg PO QHS cholesterol 04/04/17 03/15/24 History pantoprazole 40 mg tablet,delayed 40 mg PO DAILY PRN gerd 02/25/21 Unknown History release isosorbide mononitrate 60 mg 60 mg PO DAILY 03/10/22 Unknown History tablet,extended release 24 hr budesonide 160 mcg-glycopyr 9 2 inh inhalation BID #10.7 grams 07/10/23 Unknown Rx mcg-formot 4.8 mcg/actuation HFA inhaler (Breztri Aerosphere) albuterol sulfate 90 mcg/actuation 2 puff inhalation Q4H PRN PRN Sob 02/04/24 Unknown Rx aerosol inhaler &/Or Wheezing #8.5 grams montelukast 10 mg tablet 10 mg PO QHS 03/16/24 Unknown History Allergy/AdvReac Type Severity Reaction Status Date / Time No Known Allergies Allergy Verified 03/16/24 08:48 Family History (Updated 03/16/24 @ 10:50 by Herlinda Norwood) Grandmother Diabetes Aunt Breast cancer Surgical History S/P PTCA (percutaneous transluminal coronary angioplasty) History of foot surgery History of section History of percutaneous transluminal coronary angioplasty Social History Smoking Status: Current every day smoker tobacco type: cigarettes alcohol intake: never substance use type: does not use caffeine: Yes Type: coffee Number of servings: 1 ROS Constitutional Constitutional: Denies anorexia, change in weight, chills, fatigue, fever(s), night sweats or weakness Eyes Eyes: Denies blurry vision, change in vision, discharge from eye(s) or eye pain Cardiovascular Cardiovascular: Reports chest pain; Denies claudication, edema or palpitations Respiratory/Chest Respiratory/Chest: Reports dyspnea and wheezing; Denies cough, hemoptysis, shortness of breath at rest or shortness of breath with exertion Gastrointestinal Gastrointestinal: Reports abdominal pain; Denies constipation, diarrhea, hematemesis, hematochezia, melena, nausea or vomiting Genitourinary Genitourinary: Denies dysuria, hematuria, urinary frequency, urinary hesitancy, urinary incontinence or urinary urgency Musculoskeletal Musculoskeletal: Denies back pain, joint pain, joint stiffness, joint swelling, myalgias or neck pain Neurologic Neurologic: Denies abnormal gait, abnormal speech, dizziness, focal weakness, headache(s), loss of vision, numbness, other visual disturbances, paresthesias, syncope or tingling Psychiatric Psychiatric: Denies anxiety, cognitive impairment, depression, irritability, mood swings or suicidal ideation Endocrine Endocrinology: Denies change in body appearance, cold intolerance, excessive sweating, heat intolerance, polydipsia or polyuria Hematologic/Lymphatic Hematologic/Lymphatic: Denies none, anemia, easy bleeding, easy bruising or lymphadenopathy Allergic/Immunologic Allergic/Immunologic: Denies rhinitis, urticaria, eczemia or asthma Vital Signs Vital Signs Vital Signs: 03/16/24 08:47 03/16/24 08:55 03/16/24 09:02 Temperature 97.2 F L Temperature Source Temporal Pulse Rate 76 Respiratory Rate 22 H Blood Pressure 163/81 H Blood Pressure Mean 108 Blood Pressure Source Blood Pressure Position Blood Pressure Location Pulse Ox 96 98 Oxygen Delivery Method Room Air Nasal Cannula Room Air Oxygen Flow Rate (L/min) 2 03/16/24 09:15 03/16/24 09:21 03/16/24 09:45 Temperature Temperature Source Pulse Rate 62 67 58 L Respiratory Rate 22 H Blood Pressure 163/81 H 149/67 H 148/69 H Blood Pressure Mean 95 Blood Pressure Source Blood Pressure Position Blood Pressure Location Pulse Ox 100 Oxygen Delivery Method Room Air Oxygen Flow Rate (L/min) 03/16/24 10:00 03/16/24 10:39 03/16/24 11:10 Temperature 97.5 F L Temperature Source Oral Pulse Rate 54 L 62 Respiratory Rate 19 H 18 Blood Pressure 140/124 H 133/58 H Blood Pressure Mean 129 83 Blood Pressure Source Monitor Blood Pressure Position Semi-Fowlers Blood Pressure Location Left Arm Pulse Ox 100 97 95 Oxygen Delivery Method Room Air Nasal Cannula Nasal Cannula Oxygen Flow Rate (L/min) 2 2 03/16/24 11:56 Temperature 97.5 F L Temperature Source Oral Pulse Rate 64 Respiratory Rate 18 Blood Pressure 147/67 H Blood Pressure Mean 93 Blood Pressure Source Monitor Blood Pressure Position Semi-Fowlers Blood Pressure Location Left Arm Pulse Ox 95 Oxygen Delivery Method Nasal Cannula Oxygen Flow Rate (L/min) Weight Weight: 83 kg Body Mass Index (BMI) 29.5 Physical Exam Const alert, oriented x3, no apparent distress and healthy appearing General Appearance: cooperative, well kempt and well developed Orientation / Consciousness: awake, oriented to person, oriented to place and oriented to time HEENT normocephalic, head/scalp atraumatic, hearing grossly normal bilaterally and moist oral mucous membranes Eyes PERRL, EOMs intact bilaterally and conjunctivae normal Neck supple, no JVD, thyroid normal and no carotid bruits General: trachea midline Resp normal respiratory effort, no retractions and no use of accessory muscles Auscultation: wheezes expiratory wheezes and throughout; Negative for rales or rhonchi Cardio regular rate, regular rhythm, S1 normal heart sound, S2 normal heart sound, no murmurs, no rub and no gallops GI normal to inspection, nondistended, normoactive bowel sounds, soft to palpation, non-tender and non-distended Extremity no clubbing, cyanosis or edema Skin no rashes or lesions noted General Skin Exam: no breakdown Neuro oriented x3, CN's II-XII intact bilaterally, moves all extremities, no focal motor deficits and no sensory deficits noted Sensorium / Orientation: awake and alert Speech: speech normal Psych Psych Narrative: Patient appears anxious Results Lab / Micro Data 03/16/24 08:50 03/16/24 08:50 Labs: Laboratory Results - last 24 hr 03/16/24 08:50: WBC 11.8 H, RBC 5.11, Hgb 15.5 H, Hct 46.5, MCV 91.0, MCH 30.3, MCHC 33.3, RDW Std Deviation 43.8, RDW Coeff of Iván 13.1, Plt Count 405, MPV 9.3, Immature Gran % (Auto) 0.300, Neut % (Auto) 65.3, Lymph % (Auto) 24.0, [place] % (Auto) 8.2, Eos % (Auto) 1.4, Baso % (Auto) 0.8, Absolute Neuts (auto) 7.7, Absolute Lymphs (auto) 2.82, Nucleated RBC % 0, Sodium 138, Potassium 3.8, Chloride 105, Carbon Dioxide 26.0, Anion Gap 7, BUN 13, Creatinine 0.95, Estim Creat Clear Calc 66.06, Est GFR (MDRD) Af Amer 76, Est GFR (MDRD) Non-Af 63, BUN/Creatinine Ratio 13.7, Glucose 154 H, Calcium 9.4, Total Bilirubin 0.50, Direct Bilirubin 0.11, AST 24, ALT 15, Alkaline Phosphatase 112, Troponin I High Sens 5, Total Protein 7.9, Albumin 4.0, Globulin 3.9, Lipase 22 03/16/24 11:04: Troponin I High Sens 5 Rhythm Strip Rhythm Strip: Sinus Rhythm Rate: 67 Ectopy: None Imaging Radiology Impression Chest X-Ray 03/16/24 08:57 IMPRESSION: No acute cardiopulmonary process identified. Electronically Signed: Taryn Butts MD at 9:31 EST , Assessment & Plan Assessment/Plan (1) Chest pain of uncertain etiology: PLAN: Plan 1. Chest pain in a patient with known coronary artery disease-etiology unclear at this point, cardiac enzymes have been negative-patient will be placed in observation status on PCU, I will obtain 1 more troponin, patient will have an echocardiogram and a resting nuclear stress test tomorrow if her enzymes remain normal. Morphine has been ordered for pain relief, patient is also on oxycodone. #2 chronic obstructive pulmonary disease-patient is refusing aerosol treatments at this time, she states they do not do any good. #3 type 2 diabetes-patient is on no medication for diabetes presently, I have elected not to check her blood sugars #4 upper abdominal pain-etiology unclear, patient's liver enzymes and lipase were normal-patient may need an abdominal CT performed at this continues. Total clinical time spent by myself addressing the patient's medical issues, reviewing all of her data, and collaborating with patient's care team: 55 minutes Charges/Coding Visit Charges Inpatient E&M: 86423 Init Hosp L2
[2024-03-16 15:27] LABS: Troponin-I HS 6 pg/mL (3.0-54.0)
[2024-03-16] MEDS: Atorvastatin Calcium 40 MG Tablet PO (22:11)
[2024-03-16] MEDS: Montelukast 10 MG Tablet PO (22:12)
[2024-03-17] VITALS (7 sets, daily range): BP systolic 122–131; BP diastolic 60–92; PULSE 64–73; RESP 18–20; TEMP 36.4–36.9; O2SAT 92–96
--- NOTE | 2024-03-17 05:55 | EKG12_ITS ---
Test Reason : AM EKG Blood Pressure : */* mmHG Vent. Rate : 65 BPM Atrial Rate : 65 BPM P-R Int : 160 ms QRS Dur : 80 ms QT Int : 430 ms P-R-T Axes : 67 53 40 degrees QTcB Int : 447 ms Normal sinus rhythm Normal ECG When compared with ECG of 16-Mar-2024 08:49, MANUAL COMPARISON REQUIRED DATA IS UNCONFIRMED Confirmed by TAD TRAMMELL, REMBERTO ([id number]), design editor WAYLON REBOLLAR ([id number]) on 03/17/2024 2:01:56 PM Referred By: Confirmed By: REMBERTO MISHRA MD
--- NOTE | 2024-03-17 11:08 | CASEMGMT ---
Met with patient to complete MIN form. MIN form explained to patient who voiced understanding and signed form. Original form placed in pt?s chart and copy provided to patient. Candi Randall, Discharge Planning Asst
--- NOTE | 2024-03-17 12:30 | DCINST_ITS ---
Discharge Instructions Diet Discharge Diet: Light diet - advance as tolerated and 2000 mg Sodium Diet Activity Discharge Activity: Return to Normal Activity Weight Bearing Status: Weight bearing as tolerated Dressing / Incision Call your doctor if you observe: Fever of 101 or Higher, Coldness, Increased Pain, Numbness or Tingling, Change in Color, Inability to urinate, Inability to have a bowel movement, Shortness of breath, Dizziness, Fainting spells, Swelling in the ankles, Chest pain, Prolonged hiccupping, Increased palpitations (irregular heartbeat) and Calf discomfort Follow Up Care When: IN 2 WEEKS Test Results: Test results from this visit will be discussed in further detail at your follow- up appointment, if applicable. Discharge Plan Admission Admit Date/Time: 03/16/24 09:46 Primary Reason for Your Visit: Atypical chest pain. ACS ruled out Attending Provider: Kiran Spence Primary Care Provider: Greogria Quinn Consulting Providers: Torey Chahal Discharge Orders/Prescriptions Prescriptions: Continued isosorbide mononitrate 60 mg tablet extended release 24 hr 60 mg PO DAILY Breztri Aerosphere 160-9-4.8 mcg/actuation HFA aerosol inhaler 2 inh inhalation BID Qty: 10.7 6RF atorvastatin 40 MG tablet 40 mg PO QHS aspirin 81 MG tablet,chewable 81 mg PO DAILY@0800 montelukast 10 mg tablet 10 mg PO QHS albuterol sulfate 90 mcg/actuation HFA aerosol inhaler 2 puff inhalation Q4H PRN PRN (Reason: Sob &/Or Wheezing) Qty: 8.5 3RF Changed pantoprazole 40 mg tablet,delayed release (DR/EC) 40 mg PO DAILY 30 Days Qty: 30 1RF Referrals / Follow Up: Gregoria Quinn MD [Primary Care Provider] - Ronal Frazier DO [Med Staff - Active Staff] - Within 2 Weeks (For atypical chest pain possible due to GERD/dyspepsia.) Disposition Disposition (needs filled in before D/C Order can be placed): Home, Self Care
--- NOTE | 2024-03-17 12:44 | PCM.DC.SUM ---
Providers Date of Admission: 03/16/24 Date of Discharge: 03/17/24 Primary Care Physician: Dr. Gregoria Quinn MD Reason For Visit: chest pain Diagnosis Discharge Diagnosis (1) Chest pain of uncertain etiology: Status: Acute Code(s): R07.9 - Chest pain, unspecified Plan 64-year-old female came to ED for 2 weeks of acute on chronic midsternal chest pain with radiation to both arms worse with exertion. Chronic mild shortness of breath with history of COPD. She was admitted in PCU. 1. Atypical chest pain in a patient with known coronary artery disease-probably due to GERD/dyspepsia: Cardiac enzymes have been negative. Patient underwent pharmacological nuclear stress test and was negative for acute ischemia. Patient had nausea and vomiting after medication and a stress test like. She got better. She also has mild upper abdominal discomfort like dyspeptic symptoms. She never had EGD. Prescription for pantoprazole 40 mg once daily given. Advised to follow-up in GI clinic in 2 weeks. She might need EGD as an outpatient. #2. Chronic obstructive pulmonary disease on inhalers at home. On Breztri at home but not using it. #3. Type 2 diabetes mellitus: Glucose 154. Follow with PCP. Discharge medication reconciliation done. Discharge follow-up instructions completed. Discharge process discussed with the patient and all questions were answered to patient's satisfaction. Follow with PCP in 1 to 2 weeks Total time spent, exact 35 minutes on discharge meds reconciliation, examination, coordination of care with nurses and ancillary staff, review of imaging and blood test and discussion with the patient on follow-up instructions. Medications at Discharge Home Medications aspirin 81 mg chewable tablet 81 mg PO DAILY@0800 04/04/17 atorvastatin 40 mg tablet 40 mg PO QHS cholesterol 04/04/17 isosorbide mononitrate 60 mg tablet,extended release 24 hr 60 mg PO DAILY 03/10/22 budesonide 160 mcg-glycopyr 9 mcg-formot 4.8 mcg/actuation HFA inhaler (Breztri Aerosphere) 2 inh inhalation BID #10.7 grams 07/10/23 albuterol sulfate 90 mcg/actuation aerosol inhaler 2 puff inhalation Q4H PRN PRN Sob &/Or Wheezing #8.5 grams 02/04/24 montelukast 10 mg tablet 10 mg PO QHS 03/16/24 pantoprazole 40 mg tablet,delayed release 40 mg PO DAILY gerd 30 days #30 tabs 03/17/24 Physical Exam Narrative Seen and examined after the stress test. Patient denies any chest pain or shortness of breath but vomited after IV medication, probably regadenoson during the stress test. She also had mild headache for which Tylenol was given. She felt better. Complain of upper mild abdominal discomfort which is chronic. Some bloating eructation and other dyspeptic symptoms Physical exam General: Alert, Oriented x3, Cooperative HEENT: Atraumatic, PERRLA, EOMI, Normocephalic Oral: No Gingival or Mucosal Lesions/ Ulcerations Neck: Supple, No JVD, Negative Carotid Bruits Chest wall/Lungs: Air entry diminished in bilateral lung bases. No crepitation/rhonchi Cardiovascular: Regular rate, Regular Rhythm, Normal S1, Normal S2, No M/G/R Abdomen: Bowel Sounds Present, Soft, Non Tender, Non-Distended : No dysuria. No renal angle tenderness. No suprapubic tenderness. Extremities: No edema, Capillary Refill Less than 3 Seconds Skin: No rashes, No breakdown Musculoskeletal: No Tenderness to Palpation of Joints or Extremities Neurological: Cranial nerves II-XII grossly intact, DTR 2+/4. No acute focal neurological deficit. Psych/Mental Status: Flat affect. Weight / BMI Weight Weight: 182 lb 15.739 oz Body Mass Index (BMI) 29.5 ABG / Lab / Microbiology Data 03/16/24 08:50 03/16/24 08:50 Laboratory: Laboratory Results - last 24 hr 03/16/24 14:53: Troponin I High Sens 6 D/C Instructions Discharge Diet: Light diet - advance as tolerated and 2000 mg Sodium Diet Weight Bearing Status: Weight bearing as tolerated Call your doctor if you observe: Fever of 101 or Higher, Coldness, Increased Pain, Numbness or Tingling, Change in Color, Inability to urinate, Inability to have a bowel movement, Shortness of breath, Dizziness, Fainting spells, Swelling in the ankles, Chest pain, Prolonged hiccupping, Increased palpitations (irregular heartbeat) and Calf discomfort When: IN 2 WEEKS Meaningful Use Info Meaningful Use Meaningful Use Diagnoses (Choose all that apply): None applicable Ischemic Stroke Statin Dosing Therapy Reference: STATIN DOSE THERAPY REFERENCE: * Patients > 75 years receive moderate or high dose statin therapy. * Patients 75 years or YOUNGER should receive HIGH intensity statin dose unless contraindicated. You will be required to document reason for non-treatment if statin daily dose does not meet guidelines. HIGH DOSE STATIN THERAPY DAILY Atorvastatin > than or = to 40 mg Rosuvastatin > than or = to 20 mg Amlodipine + Atorvastatin > than or = to 2.5/40 mg Ezetimibe + Simvastatin 10/80 mg Simvastatin 80mg Discharge Plan Admission Admit Date/Time: 03/16/24 09:46 Primary Reason for Your Visit: Atypical chest pain. ACS ruled out Attending Provider: Kiran Spence Primary Care Provider: Gregoria Quinn Consulting Providers: Torey Chahal Discharge Orders/Prescriptions Prescriptions: Continued isosorbide mononitrate 60 mg tablet extended release 24 hr 60 mg PO DAILY Breztri Aerosphere 160-9-4.8 mcg/actuation HFA aerosol inhaler 2 inh inhalation BID Qty: 10.7 6RF atorvastatin 40 MG tablet 40 mg PO QHS aspirin 81 MG tablet,chewable 81 mg PO DAILY@0800 montelukast 10 mg tablet 10 mg PO QHS albuterol sulfate 90 mcg/actuation HFA aerosol inhaler 2 puff inhalation Q4H PRN PRN (Reason: Sob &/Or Wheezing) Qty: 8.5 3RF Changed pantoprazole 40 mg tablet,delayed release (DR/EC) 40 mg PO DAILY 30 Days Qty: 30 1RF Referrals / Follow Up: Gregoria Quinn MD [Primary Care Provider] - Ronal Frazier DO [Med Staff - Active Staff] - Within 2 Weeks (For atypical chest pain possible due to GERD/dyspepsia.) Disposition Disposition (needs filled in before D/C Order can be placed): Home, Self Care Charges/Coding Visit Charges Inpatient E&M: 98194 Disch Hosp >30min
--- NOTE | 2024-03-17 12:51 | STRESSREP ---
Stress Test Report Pharmacologic myocardial perfusion stress test. 64-year-old lady with a history of chest pain Resting EKG demonstrates sinus rhythm with a rate of 66 bpm. Resting blood pressure is 140/62 mmHg. 0.4 mg of regadenoson was infused per usual protocol followed by rapid intravenous saline flush injection. Continuous EKG monitoring was performed. The maximum heart rate was 100 bpm which was 64% of max impacted heart rate the maximum workload was 1 metabolic equivalent. At rest there were no ST or T wave changes noted to suggest ischemia and at peak infusion nonspecific ST changes were noted which did not meet the criteria for ischemia. No clinical angina is noted. The final blood pressure was 138/54 mmHg. Myocardial perfusion protocol. 12 point mCi of technetium 99m sestamibi was injected at rest. 0.4 mg of regadenoson was infused per usual protocol. At peak infusion 32 mCi of technetium 99m sestamibi was injected stress images were obtained stress and rest images were reconstructed and compared in the short axis vertical long and horizontal long axis. Gated images were also obtained. Perfusion SPECT analysis: Review of the stress images demonstrate normal uptake of tracer noted in all areas of the myocardium. The resting images similar demonstrated normal uptake of tracer noted in all areas of the myocardium. No areas of reversibility are noted to suggest ischemia and no previous infarct is noted. Gated SPECT analysis: The gated ejection fraction is 85%. Conclusion: Normal pharmacologic myocardial perfusion stress test. Preserved ejection fraction.
[2024-03-17 13:31] LABS: Cholesterol 199 mg/dL (200); High Density Lipoprotein 62 mg/dL; Triglycerides 210 mg/dL; Very Low Density Lipoprotein 42 mg/dL (5-40)
--- NOTE | 2024-03-17 13:35 | CASEMGMT ---
Patient has order for discharge. RN CM in to discuss needs at discharge. Patient denies needs or help at discharge. Patient had no further questions or concerns.
--- NOTE | 2024-03-17 13:45 | PHA.DC.MR.R ---
[facility] has performed discharge medication reconciliation for this patient. The patient's discharge medication list was reviewed for discrepancies and discrepancies were resolved. Medications at Discharge Home Medications aspirin 81 mg chewable tablet 81 mg PO DAILY@0800 04/04/17 atorvastatin 40 mg tablet 40 mg PO QHS cholesterol 04/04/17 isosorbide mononitrate 60 mg tablet,extended release 24 hr 60 mg PO DAILY 03/10/22 budesonide 160 mcg-glycopyr 9 mcg-formot 4.8 mcg/actuation HFA inhaler (Breztri Aerosphere) 2 inh inhalation BID #10.7 grams 07/10/23 albuterol sulfate 90 mcg/actuation aerosol inhaler 2 puff inhalation Q4H PRN PRN Sob &/Or Wheezing #8.5 grams 02/04/24 montelukast 10 mg tablet 10 mg PO QHS 03/16/24 pantoprazole 40 mg tablet,delayed release 40 mg PO DAILY gerd 30 days #30 tabs 03/17/24
== END 2024-03-17 12:37 | disposition home or self-care (01) ==
LOC: ED 09:42 → PCU 10:04
PROVIDERS: Admitting Provider Internal Medicine; Emergency Provider Emergency Medicine; PCP Internal Medicine; Visit Provider Internal Medicine
DX: R07.89 Other chest pain (principal); J43.9 Emphysema, unspecified; E11.9 Type 2 diabetes mellitus without complications; I10 Essential (primary) hypertension; E78.00 Pure hypercholesterolemia, unspecified; R11.2 Nausea with vomiting, unspecified; I25.10 Atherosclerotic heart disease of native coronary artery without angina pectoris; Z79.82 Long term (current) use of aspirin; R06.02 Shortness of breath; Z79.899 Other long term (current) drug therapy; F17.210 Nicotine dependence, cigarettes, uncomplicated
CPT/HCPCS: 36415; 71045; 78452; 80048; 80061; 80076; 83690; 84484; 85025; 93005; 93017; 96372; 96374; 96375; 96376; 99221; 99285; A9500; A4216; G0378; J2405; J2785

== ENCOUNTER → 2024-07-01 | Outpatient (CLI) | payer MEDICARE, MEDICAID, SELFPAY ==
--- NOTE | 2024-07-01 14:28 | CT_ITS ---
PROCEDURE: LOW DOSE CT LUNG SCREENING REASON FOR EXAM: Patient has smoked half a pack per day for 50 years. TECHNIQUE: Low Dose CT Lung Screening without contrast COMPARISON: Comparison is made with prior study dated June 22, 2023. FINDINGS: PULMONARY NODULES: (Only nodules >6mm are reported) Nodules described below are on series 1 unless otherwise specified. Pulmonary Nodules: No concerning pulmonary nodules. Hardware:None Lymph Nodes:No mediastinal hilar or axillary lymphadenopathy. Heart and Vasculature:Normal heart size. No pericardial effusion.Thoracic aorta and pulmonary arteries have normal contours; noncontrast technique limits evaluation. Coronary Artery bases. Calcifications: Present Lungs and Airways: Advanced emphysematous changes are present. Bronchiectasis and scarring at the lung Pleura:No pleural effusion. No pneumothorax. Upper Abdomen:Visualized portions of the upper abdominal viscera are unremarkable. Bones:Bone windows are unremarkable. CT/Low Dose CT Lung Screening IMPRESSION: 1. BASED ON THE ACR LUNG RADS FOR THE MOST SUSPICIOUS NODULE (IF ANY) DESCRIBE D IN THIS REPORT, THE OVERALL LUNG RADS SCORE IS 2.2 - BENIGN (BASED ON IMAGING FEATURES OR INDOLENT BEHAVIOR). RECOMMEND 12-Sun SCREENING LDCT.. 2. SMOKING CESSATION COUNSELING IS RECOMMENDED IF THE PATIENT IS STILL SMOKING . 3. OTHER SIGNIFICANT FINDINGSNone. One or more dose reduction techniques were used (e.g., Automated exposure contr ol, adjustment of the mA and/or kV according to patient size, use of iterative reconstruction technique). The following information is provided for reference:Lung-RADS 2021 Assessment C ategories. Additional information involving Lung-RADS is available at www.acr.org. 0-INCOMPLETE 1-NEGATIVE:No nodules or definitely benign nodules. Complete, central, popcorn , or centric ring calcifications OR fat containing 2-BENIGN APPEARANCE (based on imaging features or indolent behavior). Juxtaple ural nodule: < 10mm AND solid; smooth margins; oval, entiform, or triangular shape Solid nodule: <6mm at baseline or new< 4mm Part solid Nodule: < 6mm total mean diameter at baseline Nonsolid nodule:(GGN) < 30mm OR >=30mm stable or slowly growing Airway nodule, subsegmental at baseline, new, or stable Category 3 nodule stabl e or decreased in size at 6-month follow-up CT or Category 3 or 4A nodules that resolve on follow-up OR category 4B findings prov en to be benign following diagnotic work up. 3 - Probably Benign (Based on imaging features or behavior) Solid Nodule: >= 6 to <8mm at baseline OR new 4 to <6mm Part-solid nodule: >= 6mm toal mean diam. with solid component <6mm at baseline OR new < 6mm total mean diam. Non-solid nodule: GGN >= 30mm at baseline or new Atypical pulmonary cyst: Growing cystic component (mean diam.) of thick-walled cyst Category 4A nodule stable or decreased in size at 3-month follow-up CT (excl.ai rway). 4A - Suspicious Solid nodule: >=8 to < 15mm at baseline OR growing < 8mm OR new 6 to < 8mm Part solid nodule: >= 6mm total mean diam. w/ solid component >=6mm to < 8mm at baseline OR new or growing < 4mm solid component Airway nodule, segmental or more proximal at baseline or new Atypical pulmonary cyst: Thick-walled OR multilocular at baseline OR becomes mu ltilocular 4B - Very Suspicious Airway nodule, segmental or more proximal, and stable or growing Solid nodule: >= 15mm at baseline OR new or growing >= 8mm Part solid nodule: Solid component >= 8mm OR new or growing >= 4mm solid compon ent Atypical pulmonary cyst: Thick-walled with growing wall thickness/nodularity OR Growing multilocular (mean diam.) OR Multilocular with increased loculation or new/increased opacity Slow-growing solid or part solid nodule w/ growth over multiple screening exams 4X - Very Suspicious Category 3 or 4 nodules with additional features that increase the suspicion fo r lung cancer. S - Clinically Significant or potentially significant findings (non-lung cancer ) Reading Location: [id number]
== END | disposition home or self-care (01) ==
PROVIDERS: PCP Internal Medicine; Referring Provider Internal Medicine Critical Care Medicine; Visit Provider Internal Medicine Critical Care Medicine
DX: Z12.2 Encounter for screening for malignant neoplasm of respiratory organs (principal); F17.210 Nicotine dependence, cigarettes, uncomplicated
CPT/HCPCS: 71271